=== PATIENT | female | born 1960 | race Hispanic/Latino ===

== ENCOUNTER 2019-01-26 10:36 | Inpatient (IN) | payer BC ==
[~2019-01-26] VITALS: Ht 149.9 cm; Wt 77.6 kg
[2019-01-26] VITALS: BP 122/64
[~2019-01-26 10:36] MED LIST: BYSTOLIC10 MG PO; CLONAZEPAM1 MG PO; CRESTOR10 MG PO; ENJUVIA0.45 MG PO; ESIDRIX25 MG PO; MIRAPEX0.25 MG PO; NEURONTIN100 MG PO; NORVASC10 MG PO; PRAMIPEXOLE D0.25 MG PO; PREMARIN0.625 MG PO
--- OUTSIDE RECORDS SUMMARY | 2019-01-26 10:40 | XMS REPORT | Summary of Care ---
Author Author [facility] Organization [facility] Address Unknown Phone Unavailable Encounter HQ Encntr_mundo(FIN) [id number] Date(s): 05/10/16 - 05/10/16 [facility] [address] [place] [address]- [phone] Discharge Disposition: Home or Self Care Attending Physician: Trenton Abbasi MD Referring Physician: Trenton Abbasi MD Vital Signs No data available for this section Problem List No data available for this section Allergies, Adverse Reactions, Alerts Substance Reaction Severity Status Flagyl Active Medications No data available for this section Results No data available for this section Immunizations No data available for this section Procedures No data available for this section Social History Social History Type Response Assessment and Plan No data available for this section
--- OUTSIDE RECORDS SUMMARY | 2019-01-26 10:40 | XMS REPORT ---
Author Author [facility] Address Unknown Phone Unavailable Care Team Providers Care Chemical Pathologist Name Role Phone Unavailable Unavailable Payers Payer Name Policy Type Policy Number Effective Date Expiration Date Problems This patient has no known problems. Allergies, Adverse Reactions, Alerts Allergy Name Allergy Type Status Severity Reaction(s) Onset Date Inactive Date Treating Clinician Comments Metronidazole HCl DA Active SV 2018-08-07 00:00:00 Metronidazole HCl DA Active SV 2011-08-17 00:00:00 Medications This patient has no known medications.
--- OUTSIDE RECORDS SUMMARY | 2019-01-26 10:40 | XMS REPORT | Continuity of Care Document ---
Author Author [facility] Interface Address Unknown Phone Unavailable Problems Problem Status Onset Date Classification Date Reported Comments Source DX: R91.1=SOLITARY PULMONARY NODULE Active 05/03/2016 [facility] SOLITARY PULMONARY NODULE Active [facility] Medications Medication Details Route Status Patient Instructions Ordering Provider Order Date Source Allergies, Adverse Reactions, Alerts Substance Category Reaction Severity Reaction type Status Date Reported Comments Source Flagyl Assertion Drug allergy Active [facility] Immunizations Immunization Date Given Site Status Last Updated Comments Source Results Order Name Results Value Reference Range Date Interpretation Comments Source PET CT Lung solitary pulm nodule PET CT Lung solitary pulm nodule PET CT Lung solitary pulm nodule TECHNIQUE: 15 mCis of FDG were administered intravenously and a series of overlapping images were obtained from the skull base to the proximal thighs utilizing a PET/CT hybrid device. The CT was utilized for attenuation correction and anatomic correlation and not as an independent diagnostic study. BLOOD GLUCOSE: 104 mg/dl COMPARISON: No previous imaging is available for direct comparison. Outside institution CT scan report from 05/01/2016 is referenced. CLINICAL HISTORY: R91.1 Solitary pulmonary nodule; FINDINGS: HEAD AND NECK: No abnormal activity is visualized CHEST: Corresponding to the 9 mm left lower lobe pulmonary nodule, no significant increase in metabolic activity is noted. Maximum SUV is 1.5 on image 104. Mild cardiomegaly. ABDOMEN AND PELVIS: Status post hysterectomy. Physiologic activity is visualized in the solid organs, genitourinary tract and gastrointestinal tract. SKELETON: No abnormal activity is visualized IMPRESSION: No significant increase in metabolic activity is noted corresponding to the 9 mm nodule at left lung base. Continued imaging follow-up and clinical follow-up is recommended. [id number] 05/10/2016 - - Read by: Stas Candelaria MD Dictated Date/time: 05/11/16 10:36 Electronically Signed by: Stas Candelaria MD 05/11/16 10:54 FINAL REPORT Tamiko Vital Signs Vital Sign Value Date Comments Source Encounters Location Location Details Encounter Type Encounter Number Reason For Visit Attending Provider ADM Date DC Date Status Source [facility] [id number] Trenton Oroscoel 05/10/2016 05/11/2016 [facility] Procedures Procedure Code Date Perfomer Comments Source
[2019-01-26] MEDS ORDERED: FAMOTIDINE 20 MG/2 ML VIAL IV STA (10:42)
[2019-01-26] MEDS ORDERED: ONDANSETRON HCL INJ 2MG/ML 2ML 2 MG/ML VIAL IV STA (10:42)
[2019-01-26] MEDS ORDERED: SODIUM CHLORIDE 0.9% 1000ML 1,000 ML IV ONE (10:45)
[2019-01-26] MEDS ORDERED: MORPHINE SULFATE 5 MG/ML VIAL IV ONE ×2 (10:45→14:30)
[2019-01-26] MEDS ORDERED: DICYCLOMINE HCL 20 MG/2 ML VIAL IM ONE (10:45)
[2019-01-26] MEDS ORDERED: DIATRIZOATE MEGL/DIATRIZOA SOD 30 ML BTL PO ONE (10:55)
[2019-01-26 10:56] LABS: BASOPHILS % 0.4 % (0.0-1.0); EOSINOPHILS # (AUTO) 0.1 (0.0-0.4); EOSINOPHILS % 1.1 % (0.0-6.0); HEMATOCRIT 40.9 % (34.2-44.1); LYMPHOCYTES # (AUTO) 2.1 (1.0-3.2); LYMPHOCYTES % 18.3 % (18.0-39.1); MEAN CORPUSCULAR HEMOGLOBIN 30.2 pg (28-32); MEAN CORPUSCULAR HGB CONC 31.8 g/dL (31-35); MEAN CORPUSCULAR VOLUME 95.1 fL (81-99); MONOCYTES # (AUTO) 0.8 (0.2-0.8); MONOCYTES % 6.7 % (4.4-11.3); NEUTROPHILS # (AUTO) 8.3 (2.1-6.9); NEUTROPHILS % 73.1 % (38.7-80.0); PLATELET COUNT 255 x10e3/uL (140-360); RED CELL DISTRIBUTION WIDTH 15.1 % (11.7-14.4)
--- NOTE | 2019-01-26 10:56 | NUR ---
rec'd pt in rm 3 in walking rounds with livrn and davidson simental. pt medicated per 's orders. bed low/locked and call lancaster at side. spouse in room with patient. ct contrast dropped off.
[2019-01-26] MEDS ORDERED: MORPHINE SULFATE INJ 4 MG/ML INJ 1ML IV ONE (11:00)
[2019-01-26 11:21] LABS: ALANINE AMINOTRANSFERASE 14 IU/L (0-55); ALBUMIN 3.9 g/dL (3.5-5.0); ALBUMIN/GLOBULIN RATIO 1.2 (0.8-2.0); ALKALINE PHOSPHATASE 51 IU/L (40-150); ANION GAP 19.1 mmol/L (8-16); BLOOD UREA NITROGEN 10 mg/dL (7-26); BUN/CREATININE RATIO 12 (6-25); CARBON DIOXIDE 20 mmol/L (22-29); CHLORIDE 100 mmol/L (98-107); CREATININE, SERUM 0.85 mg/dL (0.57-1.11); EST GLOMERULAR FILTRATION RATE > 60 ML/MIN (60-); GLUCOSE 89 mg/dL (74-118); LIPASE 14 U/L (8-78); POTASSIUM 4.1 mmol/L (3.5-5.1); SODIUM 135 mmol/L (136-145)
--- NOTE | 2019-01-26 12:58 | NUR ---
back from ct and rating pain 03/14. "the morphine seemed to help me rest and it took some of the pain away, but it wore off." dr. naik/sigifredo sullivan np informed
[2019-01-26] MEDS ORDERED: KETOROLAC TROMETHAMINE 30 MG/ML VIAL IV STA (13:25)
[2019-01-26] MEDS ORDERED: ERTAPENEM 1GM/NS 100ML 100 ML IV ONE (13:30)
--- NOTE | 2019-01-26 13:41 | NUR ---
medicated for pain with 30mg iv toradol. pt rating lower back pain 8/10
[2019-01-26] MEDS ORDERED: PIPERACILLIN/TAZO 4.5 GM 100 ML IV ONE (14:00)
--- NOTE | 2019-01-26 14:22 | Diagnostic Imaging Report ---
CT of the abdomen and pelvis, with contrast, 01/26/2019. History: Diverticulitis. Comparison: Outside noncontrast CT 01/25/2019. Technique: Multidetector CT scanning of the abdomen and pelvis was performed from the level of the lung bases to the inferior pubic rami after intravenous and oral administration of contrast. Coronal and sagittal multiplanar reformations were obtained. RADIATION DOSE: Total DLP: 620 mGy*cm Dose modulation, iterative reconstruction, and/or weight based adjustment of the mA/kV was utilized to reduce the radiation dose to as low as reasonably achievable. Discussion: LUNG BASES: A 1.2 x 1.1 cm noncalcified nodule is present at the left lung base. There is bibasilar atelectasis. ABDOMEN: The liver, gallbladder, biliary tree, spleen, pancreas, adrenal glands, and kidneys are normal. The hepatic vein, portal vein, and splenic vein are patent. The abdominal aorta is within normal limits for size. The stomach and small bowel bowel are unremarkable. The appendix is visualized and is normal. Diverticula are scattered throughout the colon. There is mesenteric fat stranding adjacent to the mid ascending colon. There is no evidence of free air or focal fluid collection. There is no evidence of adenopathy or free fluid. A small fat-containing umbilical hernia is present. PELVIS: The bladder is unremarkable. The uterus and adnexa are not visualized. There is no evidence of free fluid or adenopathy. BONES AND SOFT TISSUES: Mild degenerative changes are present throughout the lumbar spine without evidence of lytic or sclerotic lesion. IMPRESSION: 1. Diverticulitis of the ascending colon without evidence of perforation or abscess. 2. Left lower lobe 1.2 cm pulmonary nodule. Consider follow-up CT at 3 months, PET/CT, or tissue sampling. 3. Status post hysterectomy. Signed by: Keenan Ruth on 01/26/2019 2:19 PM
[2019-01-26] MEDS ORDERED: MORPHINE SULFATE INJ 4 MG/ML INJ 1ML IV SCH (14:30)
[2019-01-26] MEDS ORDERED: SODIUM CHLORIDE FLUSH 10 ML SYR INJ PRN (14:45)
[2019-01-26] MEDS ORDERED: DICYCLOMINE HCL 20 MG/2 ML VIAL IM PRN (14:45)
[2019-01-26] MEDS ORDERED: MORPHINE SULFATE 2 MG/ML SYR 1ML IV PRN (14:45)
--- NOTE | 2019-01-26 14:56 | NUR ---
pt updated on pending admit to hospital
[2019-01-26] MEDS: SODIUM CHLORIDE 0.9% 1000ML 1,000 ML IV SCH (15:00)
--- NOTE | 2019-01-26 15:00 | NUR ---
PT TRANSPORTED TO ROOM 299 VIA WHEELCHAIR FROM ER. NO S/S OF DISTRESS, O2 2L VIA NC APPLIED. IS AT THE BEDSIDE. PT IS COMPLAINING OF PAIN 8/10 IN THE LOWER BACK. Addendum: 01/26/19 at 1919 by Bobbi Tafoya RN PT ARRIVED ON UNIT AT 1715. "PT TRANSPORTED TO ROOM 299 VIA WHEELCHAIR FROM ER. NO S/S OF DISTRESS, O2 2L VIA NC APPLIED. IS AT THE BEDSIDE. PT IS COMPLAINING OF PAIN 8/10 IN THE LOWER BACK."
[2019-01-26] MEDS ORDERED: METOPROLOL TART50 MG PO (15:25)
[2019-01-26] MEDS ORDERED: LIPITOR20 MG PO (15:25)
[2019-01-26] MEDS ORDERED: MECLIZINE HCL12.5 MG PO (15:25)
[2019-01-26] MEDS ORDERED: ESTROGEN-METHY1 EACH PO (15:25)
--- NOTE | 2019-01-26 15:25 | NUR ---
updated home med list obtained from spouse and entered into the computer
--- NOTE | 2019-01-26 16:30 | NUR ---
RECEIVED REPORT FROM ER. PT IS AOX3, R AC 20G NS @ 125ML/HR, 2L O2 VIA NC, COMPLAINING OF LOWER BACK PAIN MORPHINE 4MG WAS LAST GIVEN AT 1100. PT IS ON CLEAR LIQUID DIET AND AMBULATES WITHOUT ASSISTANCE.
[2019-01-26 17:32] VITALS: BP 113/57
[2019-01-26 17:33] VITALS: BP 113/57
[2019-01-26] MEDS: MORPHINE SULFATE INJ 4 MG/ML INJ 1ML IV PRN (17:41)
[2019-01-26] MEDS: ONDANSETRON HCL INJ 2MG/ML 2ML 2 MG/ML VIAL IV PRN (17:41)
[2019-01-26 17:50] VITALS: BP 113/57
[2019-01-26] MEDS: LEVOFLOXACIN 500MG/D5W 100ML 100 ML IV SCH (18:27)
--- NOTE | 2019-01-26 19:00 | NUR ---
patient received awake, alert, lying quietly in bed. no c/o pain noted. ivf continue to infuse without difficulty. pm assessment complete. patient instructed to call for assistance when needed.
[2019-01-26] MEDS ORDERED: IOPAMIDOL 370 MG/ML 200 ML INFUS..BTL INJ ONE (19:22)
[2019-01-26] MEDS ORDERED: SODIUM CHLORIDE 0.9% 50ML 50 ML ONE (19:22)
[2019-01-26 19:30] VITALS: BP 96/56
[2019-01-26 20:00] VITALS: BP 96/56
--- NOTE | 2019-01-26 21:19 | NUR ---
here to see patient. Consult ordered for . Consult called at this time by Beverly GALLOWAY and she spoke to Gertrudis.
[2019-01-26] MEDS: PIPER-TAZ 3.375 GM 50 ML IV SCH (22:00)
[2019-01-26] MEDS ORDERED: PIPER-TAZ 3.375 GM / NS 50ML IV SCH (22:00)
[2019-01-27] VITALS (7 sets, daily range): BP systolic 111–125; BP diastolic 53–80
--- NOTE | 2019-01-27 | NUR ---
patient oob to bathroom with assistance. patient voids without difficulty. patient medicated with morphine 4mg and zofran 4mg ivp for c/o upper abd/upper mid back pain 02/11 at this time.
--- NOTE | 2019-01-27 00:49 | History and Physical ---
CHIEF COMPLAINT: Abdominal pain that started 3 days ago. HISTORY OF PRESENT ILLNESS: Ms. Prescott is a 58-year-old female, she came in for abdominal pain. She is a regular patient of Dr. Cullen Abbasi and she has been admitted to our service as we admitted for Dr. Abbasi. The patient reports that the pain started Saturday, which is two days ago and progressively got worse, it was associated with nausea, she vomited once as well. Mostly, the abdominal pain is in the upper abdomen, radiates to the back. She denies any complaints of chest pain or shortness of breath. She has been a smoker for 30+ years. REVIEW OF SYSTEMS: GENERAL: Denies any fever or chills. HEAD: Denies any head trauma. ENT: Denies any earache or nosebleed. CVS: Denies any chest pain. RESPIRATORY: Denies any shortness of breath. GI: As above. The rest of the review of systems are negative except as in HPI. PAST MEDICAL HISTORY: Hypertension. PAST SURGICAL HISTORY: Hysterectomy and AVM surgery in the brain. FAMILY AND SOCIAL HISTORY: Smoker for 30 years, couple of cigarettes a day. Denies any alcohol use. Lives with her . Works in the office. PHYSICAL EXAMINATION: VITAL SIGNS: Temperature 97.6, pulse of 67, blood pressure 113/57, respiratory rate of 18, and O2 saturation 95%. HEENT: Head is atraumatic and normocephalic. NECK: Supple. CHEST: Clear to auscultation bilaterally. ABDOMEN: Soft. [id number]-lp-[id number] tenderness, generalized. EXTREMITIES: No pedal edema. NEUROLOGICAL: Awake and alert. No focal neurologic deficit. IMAGING: CT of the abdomen and pelvis shows evidence of diverticulitis without perforation and incidental finding of the lung nodule. LABORATORY DATA: Sodium 135, potassium 4.1, bicarb 20, BUN 10, and creatinine 0.85. White count of 11,000, hemoglobin 13.0, and platelets 255. ASSESSMENT: Ms. Prescott is a 58-year-old female came in with abdominal pain. CT showing evidence of diverticulitis. She is mildly acidotic with carbon dioxide of 20 anion gap of 19. Current problem: 1. Possible acute diverticulitis. We will start the patient on IV Levaquin. The patient has been given Zosyn in the emergency room. We will recheck labs in a.m. Check lactate level. 2. Consult Gastroenterology for further recommendations. Discussed with the patient's at bedside. MD HU Varma/MAYLIN /[id number]
[2019-01-27] MEDS: SODIUM CHLORIDE 0.9% 1000ML 1,000 ML IV SCH ×4 (02:00→21:55)
--- NOTE | 2019-01-27 02:15 | Consultation ---
DATE OF CONSULTATION: 01/26/2019 GI Consult Note CONSULTING PHYSICIAN: Mustapha Zavala MD REASON FOR CONSULT: Acute ascending colon diverticulitis. HISTORY OF PRESENTING ILLNESS: This is a 58 years old very pleasant female, who got admitted to the Emergency Room with acute onset of right lower quadrant pain. She denies any associated fever or chills. She has some admitted nausea. This pain started all of sudden yesterday, therefore she came to the Emergency Room. Blood work revealed mild leukocytosis with left shift. CT scan of the abdomen showed acute ascending colon diverticulitis without any local complications. She is currently being treated with broad-spectrum intravenous antibiotics. The patient has had a colonoscopy when she was 52 years old. The patient is not able to recall the findings. REVIEW OF SYSTEMS: Twelve point system reviewed. Symptomatology is limited to GI system. PAST MEDICAL HISTORY: Hypertension and hyperlipidemia. 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 She also has had a colonoscopy 4 years ago, spinal surgery, and hysterectomy. FAMILY HISTORY: Noncontributory. SOCIAL HISTORY: , lives with . No alcohol or any smoking. ALLERGIES: NO KNOWN DRUG ALLERGIES. HOME MEDICATIONS: Amlodipine, atorvastatin, meclizine, metoprolol, pramipexole, estrogen/testosterone. INPATIENT MEDICATIONS: Intravenous levofloxacin and intravenous piperacillin/tazobactam along with other medication. PHYSICAL EXAMINATION: VITAL SIGNS: Temperature 95.6, pulse 67, respirations 19, blood pressure 113/57, and oxygen saturation 95% on 2 L of nasal cannula. GENERAL: Not in any acute distress. HEENT: Oral mucosa is moist. Anicteric sclerae. CVS: S1, S2. Regular. LUNGS: Bilaterally grossly clear. ABDOMEN: Soft. Mild lower quadrant tenderness on palpation without rebound, rigidity, or guarding. No palpable mass or hernia. Positive bowel sounds. EXTREMITIES: Warm. No leg edema. LABORATORY DATA: WBC 11.39, hemoglobin 13.0, hematocrit 40.9, MCV 95.1, and platelet count 255. Sodium 135, potassium 4.1, chloride 100, bicarb 20, BUN 10, creatinine 0.85. Liver enzymes normal. CT of the abdomen and pelvis: 1. Diverticulitis of ascending colon without evidence of perforation or abscess. 2. Left lower lobe 1.2 cm pulmonary nodule. Consider followup CT at 3 months, PT/CT or tissue sampling. 3. Status post hysterectomy. IMPRESSION: Acute ascending diverticulitis without any local complication. PLAN: Low residue diet, IV fluids, continue broad-spectrum intravenous antibiotic. Supportive care. Surgery consult. Primary team to address lung nodule as seen on CT. I thank Dr. Zavala for allowing me to participate in the care of this patient. Nick Elise MD SA/MAYLIN /[id number]
[2019-01-27] MEDS: PIPER-TAZ 3.375 GM 50 ML IV SCH ×3 (05:24→22:54)
[2019-01-27 06:15] LABS: BASOPHILS % 0.5 % (0.0-1.0); EOSINOPHILS # (AUTO) 0.1 (0.0-0.4); EOSINOPHILS % 1.2 % (0.0-6.0); HEMATOCRIT 33.9 % (34.2-44.1); HEMOGLOBIN 10.6 g/dL (12.0-16.0); LYMPHOCYTES # (AUTO) 1.4 (1.0-3.2); LYMPHOCYTES % 19.4 % (18.0-39.1); MEAN CORPUSCULAR HEMOGLOBIN 31.2 pg (28-32); MEAN CORPUSCULAR HGB CONC 31.3 g/dL (31-35); MEAN CORPUSCULAR VOLUME 99.7 fL (81-99); MONOCYTES # (AUTO) 0.5 (0.2-0.8); MONOCYTES % 6.2 % (4.4-11.3); NEUTROPHILS # (AUTO) 5.3 (2.1-6.9); NEUTROPHILS % 72.4 % (38.7-80.0); PLATELET COUNT 191 x10e3/uL (140-360); RED CELL DISTRIBUTION WIDTH 15.1 % (11.7-14.4)
[2019-01-27 06:28] LABS: ALANINE AMINOTRANSFERASE 10 IU/L (0-55); ALBUMIN/GLOBULIN RATIO 1.2 (0.8-2.0); ALKALINE PHOSPHATASE 36 IU/L (40-150); BLOOD UREA NITROGEN 7 mg/dL (7-26); BUN/CREATININE RATIO 11 (6-25); CALCIUM 8.1 mg/dL (8.4-10.2); CARBON DIOXIDE 18 mmol/L (22-29); CHLORIDE 106 mmol/L (98-107); CREATININE, SERUM 0.65 mg/dL (0.57-1.11); EST GLOMERULAR FILTRATION RATE > 60 ML/MIN (60-); GLUCOSE 71 mg/dL (74-118); SODIUM 134 mmol/L (136-145)
[2019-01-27] MEDS: MORPHINE SULFATE INJ 4 MG/ML INJ 1ML IV PRN ×5 (06:45→20:29)
[2019-01-27] MEDS: ONDANSETRON HCL INJ 2MG/ML 2ML 2 MG/ML VIAL IV PRN ×5 (06:45→20:30)
--- NOTE | 2019-01-27 06:45 | NUR ---
patient oob to bathroom with assistance. patient medicated with morphine 4mg and zofran 4mg ivp for c/o upper abd/mid upper back pain 02/11 at this time.
--- NOTE | 2019-01-27 07:25 | NUR ---
Bedside change of shift report received from Suzy Verduzco RN. Pt is resting comfortably in bed sts she just received pain med and nausea med and her abdomen started to feel better, pt instructed use the call light for assistance, call light is within reach, 20 g peripheral iv infusing well to left arm with no complaints of discomfort, bed in the lowest position, side rails up x2, and bed is locked.
--- NOTE | 2019-01-27 11:45 | NUR ---
Visit made by the Spiritual Care Department Pastoral Visitor, Albertina Mejias. PV provided pastoral presence, prayer, hospitality, and supportive listening. Pastoral Visitor informed pt/family of the scope of [employer] and availability. [facility] Department O: [phone] Pager: [phone] ([phone] calling from)
--- NOTE | 2019-01-27 15:08 | Consultation ---
DATE OF CONSULTATION: 01/27/2019 CHIEF COMPLAINT: Abdominal pain. HISTORY OF PRESENT ILLNESS: The patient is a 58-year-old female with a 3-day history of pain in the right upper quadrant radiating to the back with vomiting and diarrhea. Pain is persistent. No associated fever or chills. No prior episode. No family members with same symptoms. PAST MEDICAL HISTORY: Positive for hypertension. PAST SURGICAL HISTORY: Positive for hysterectomy and brain surgery for AVM and AV malformation. SOCIAL HABITS: The patient is a social drinker and smoker for many years. REVIEW OF SYSTEMS: No chest pain or shortness of breath. ALLERGIES: SHE HAD NO DRUG ALLERGIES. PHYSICAL EXAMINATION: VITAL SIGNS: Stable. She is afebrile. She is awake, alert, in moderate discomfort. HEENT: Sclera anicteric. NECK: Supple. LUNGS: Clear. HEART: Regular rate and rhythm. ABDOMEN: Soft with guarding tenderness and rebound in the right upper quadrant. EXTREMITIES: No cyanosis or edema. LABORATORY DATA: White cell count is 7, hemoglobin of 10, platelet count is 191. Creatinine is 0.6. Liver function tests within normal limits. CT abdomen revealed diverticulitis involving the mid ascending colon without abscess formation. ASSESSMENT: Acute diverticulitis of the ascending colon. PLAN: IV antibiotics have been initiated. We will follow patient with you. Magdaleno Story MD DNL/MODL /[id number]
[2019-01-27] MEDS: LEVOFLOXACIN 500MG/D5W 100ML 100 ML IV SCH (18:58)
--- NOTE | 2019-01-27 19:04 | NUR ---
Bedside change of shift report given to LAZARO Cowan. Pt is resting comfortably in bed and no acute distress noted. IVF infusing well to Lfa. Pt instructed to call for assistance. Pt verbalized understanding.
--- NOTE | 2019-01-27 20:30 | NUR ---
PATIENT C/O NAUSEA AND ABDOMINAL PAIN, MEDICATED WITH ZOFRAN AND MORPHINE ORDERED. CALL LIGHT WITHIN EASY REACH, SHE'S INSTRUCTED TO CALL FOR ASSISTANCE NEEDED. HER IS AT THE BEDSIDE, HE'S TOLD TO NOTIFY THE NURSE WHEN HE'S LEAVING SO THAT THE BED ALARM CAN BE ACTIVATED.
--- NOTE | 2019-01-27 21:32 | NUR ---
PATIENT ASSISTED TO THE RESTROOM AND SHE'S NOW BACK IN BED. SMALL BLISTER OBSERVED TO THE RIGHT UPPER BACK, ALLEVYN DRESSING APPLIED TO THE SITE AND PAD REMOVED FROM THE BED. WILL CONSULT WOUND CARE.
--- NOTE | 2019-01-27 21:39 | Progress Note ---
DATE: 01/27/2019 GI Progress Report SUBJECTIVE: The patient reports slight improvement in abdominal pain. Still not able to tolerate clear liquids. She continues to have nausea, she has had a couple of bouts of vomiting. REVIEW OF SYSTEMS: GENERAL: No fever or chills. CVS: No chest pain or palpitation. RESPIRATORY: No cough or expectoration. MEDICATIONS: Reviewed in the MAR, the patient is on intravenous levofloxacin and piperacillin/tazobactam along with other supportive medications. PHYSICAL EXAMINATION: VITAL SIGNS: Temperature 98.8, pulse 76, respirations 16, blood pressure 125/58, and oxygen saturation 93% on 2 L of nasal cannula. GENERAL: Not in any acute distress. HEENT: Oral mucosa is moist. ABDOMEN: Soft. Right lower quadrant tenderness on mild palpation without rebound, rigidity, or guarding. Positive bowel sounds. LABORATORY DATA: Sodium 134, potassium 4.0, chloride 106, bicarb 18, BUN 7, and creatinine 0.65. Liver enzymes showed total bilirubin 0.4, AST 10, ALT 10, and alkaline phosphatase 36. WBC has come down to 7.37 from 11.39, hemoglobin 10.6, hematocrit 33.9, MCV 99.7, and platelet count 191. IMPRESSION: Ascending colon diverticulitis without any local complication. PLAN: Continue liquid diet as tolerated. IV fluids and IV antibiotics. The patient's white count has significantly improved. Abdominal exam has also improved since yesterday. We will continue to monitor her and follow her clinically. Nick Elise MD SA/MAYLIN /[id number]
[2019-01-28] VITALS (7 sets, daily range): BP systolic 92–157; BP diastolic 67–77
[2019-01-28] MEDS: ONDANSETRON HCL INJ 2MG/ML 2ML 2 MG/ML VIAL IV PRN ×5 (01:06→22:23)
[2019-01-28] MEDS: MORPHINE SULFATE INJ 4 MG/ML INJ 1ML IV PRN ×3 (01:06→11:55)
--- NOTE | 2019-01-28 01:07 | NUR ---
PATIENT ASSISTED TO THE RESTROOM, SHE'S NOW BACK IN BED WITH CALL LIGHT WITHIN EASY REACH. SHE C/O ABDOMINAL PAIN AND NAUSEA, MEDICATED WITH MORPHINE AND ZOFRAN ORDERED.
--- NOTE | 2019-01-28 05:10 | NUR ---
PATIENT IS SOUNDLY ASLEEP, NO RESPIRATORY DISTRESS OBSERVED.
[2019-01-28] MEDS: PIPER-TAZ 3.375 GM 50 ML IV SCH ×3 (06:33→21:40)
[2019-01-28] MEDS: SODIUM CHLORIDE 0.9% 1000ML 1,000 ML IV SCH (06:33)
--- NOTE | 2019-01-28 07:25 | NUR ---
REC'D PATIENT AAOX3, C/O BACK IN PAIN, ON ROOM AIR, NO S/S OF DISTRESS. SIDE RAILS UP X2, CALL ROMERO WITHIN REACH, AND BED IN LOWEST POSITION.
[2019-01-28] MEDS ORDERED: SODIUM CHLORIDE 0.9% 1000ML 1,000 ML ONE (17:37)
--- NOTE | 2019-01-28 18:00 | NUR ---
DR. GILMORE IS IN ROOM WITH PATIENT. DISCONTINUED IV FLUIDS AND STARTED UP ON HOME MEDS AND PO PAIN MED. BED IN LOWEST POSITION, SIDE RAILS UPX2, AND CALL ROMERO WITHIN REACH.
[2019-01-28] MEDS: LEVOFLOXACIN 500MG/D5W 100ML 100 ML IV SCH (18:19)
[2019-01-28] MEDS ORDERED: MECLIZINE HCL 12.5 MG TAB PO PRN (18:30)
[2019-01-28] MEDS ORDERED: ESTROGEN-METHY1 EACH PO (19:12)
--- NOTE | 2019-01-28 19:30 | NUR ---
Pt visited in room during nursing rounds. Patient alert and oriented x3. Pt stated still feeling some abd pain. at bedside. On scheduled IV antibiotics. Call lancaster within reach.
--- NOTE | 2019-01-28 20:00 | NUR ---
Dr. Nick Elise (GI) visited pt in room. MD aware of pt condition.
[2019-01-28] MEDS: PRAMIPEXOLE DIHYDROCHLORIDE 0.25 MG TAB PO SCH (21:15)
[2019-01-28] MEDS: HYDROCODONE/APAP 5MG-325MG TAB PO PRN (21:34)
--- NOTE | 2019-01-28 23:10 | Progress Note ---
DATE: 01/28/2019 SUBJECTIVE: The patient reports significant improvement in abdominal pain. However, she is complaining about constipation. She has had a very small bowel movement. She feels that the stool is very hard, and hard to pass. REVIEW OF SYSTEMS: GENERAL: No fever or chills. CVS: No chest pain or palpitations. RESPIRATORY: No cough or expectoration. MEDICATIONS: Reviewed as per OCT. She is on levofloxacin as well as piperacillin/tazobactam being given intravenously along with other medications. OBJECTIVE: VITAL SIGNS: Temperature 97.5, pulse 64, respirations 17, blood pressure 134/77, oxygen saturation 97% on 2 L of nasal cannula. GENERAL: Not in any acute distress. HEENT: Oral mucosa is moist. ABDOMEN: Soft. Right lower quadrant tenderness has improved. No rebound, rigidity, or guarding. Bowel sounds minimal. LABS: No lab drawn today. IMPRESSION: 1. Ascending diverticulitis, clinically improving. 2. Opioid-induced constipation. PLAN: Daily bowel regimen. A trial of Relistor if no BM tomorrow. Continue IV antibiotics, IV fluids. Advance the diet as tolerated. The patient is currently on liquid diet. Nick Elise MD SA/MAYLIN /[id number]
[2019-01-29] VITALS (7 sets, daily range): BP systolic 130–181; BP diastolic 65–88
[2019-01-29] MEDS: ONDANSETRON HCL INJ 2MG/ML 2ML 2 MG/ML VIAL IV PRN ×2 (03:43→22:34)
[2019-01-29] MEDS: MORPHINE SULFATE INJ 4 MG/ML INJ 1ML IV PRN ×4 (03:43→22:34)
[2019-01-29] MEDS: PIPER-TAZ 3.375 GM 50 ML IV SCH ×3 (05:52→22:13)
[2019-01-29 06:23] LABS: BASOPHILS % 0.5 % (0.0-1.0); EOSINOPHILS # (AUTO) 0.1 (0.0-0.4); EOSINOPHILS % 2.4 % (0.0-6.0); HEMATOCRIT 34.9 % (34.2-44.1); HEMOGLOBIN 11.3 g/dL (12.0-16.0); LYMPHOCYTES # (AUTO) 1.5 (1.0-3.2); MEAN CORPUSCULAR HEMOGLOBIN 30.5 pg (28-32); MEAN CORPUSCULAR HGB CONC 32.4 g/dL (31-35); MEAN CORPUSCULAR VOLUME 94.3 fL (81-99); MONOCYTES # (AUTO) 0.5 (0.2-0.8); MONOCYTES % 8.4 % (4.4-11.3); NEUTROPHILS # (AUTO) 3.7 (2.1-6.9); NEUTROPHILS % 63.5 % (38.7-80.0); PLATELET COUNT 231 x10e3/uL (140-360); RED CELL DISTRIBUTION WIDTH 14.6 % (11.7-14.4)
[2019-01-29 06:39] LABS: ANION GAP 13.4 mmol/L (8-16); BLOOD UREA NITROGEN < 5 mg/dL (7-26); CALCIUM 8.4 mg/dL (8.4-10.2); CARBON DIOXIDE 23 mmol/L (22-29); CHLORIDE 102 mmol/L (98-107); EST GLOMERULAR FILTRATION RATE > 60 ML/MIN (60-); GLUCOSE 84 mg/dL (74-118); POTASSIUM 3.4 mmol/L (3.5-5.1); SODIUM 135 mmol/L (136-145)
[2019-01-29 06:52] LABS: BUN/CREATININE RATIO 8 (6-25)
--- NOTE | 2019-01-29 07:15 | NUR ---
The pt. was received in bed asleep to the right side. The bed rails are elevated and no distress noted.
[2019-01-29] MEDS: POLYETHYLENE GLYCOL 3350 17 GM PACK PO SCH ×2 (09:00→17:00)
[2019-01-29] MEDS: METOPROLOL TARTRATE 50 MG TAB PO SCH (09:00)
--- NOTE | 2019-01-29 10:03 | NUR ---
Rounds with Dr. Zavala and the pt reports to him no decrease in the amount and was tender at palpation. The ordered a Ct scan of the abd /pelvis. The pt was medicated for pain 03/14.
[2019-01-29] MEDS ORDERED: DIATRIZOATE MEGL/DIATRIZOA SOD 30 ML BTL PO ONE (10:13)
[2019-01-29] MEDS ORDERED: POTASSIUM CHLORIDE 20MEQ/100ML 100 ML IV ONE (10:30)
--- NOTE | 2019-01-29 13:57 | Diagnostic Imaging Report ---
EXAM: CT Abdomen and Pelvis WITH contrast INDICATION: ^SEVERE ABDOMINAL PAIN/ DIAGNOSED WITH DIVETICULITIS ^[id number] ^1100 COMPARISON: CT abdomen/pelvis, 01/26/2019 TECHNIQUE: Abdomen and pelvis were scanned utilizing a multidetector helical scanner from the lung base to the pubic symphysis after administration of IV contrast. Coronal and sagittal reformations were obtained. Routine protocol was performed. Scan was performed when during portal venous phase. Dose modulation, iterative reconstruction, and/or weight based adjustment of the mA/kV was utilized to reduce the radiation dose to as low as reasonably achievable. IV CONTRAST: 100 mL of Isovue-370 ORAL CONTRAST: 30 cc Gastrografin RADIATION DOSE: Total DLP: 529.09 mGy*cm Estimated effective dose: (DLP x 0.015 x size factor) mSv COMPLICATIONS: None FINDINGS: LINES and TUBES: None. LOWER THORAX: Nonspecific 1.2 cm nodule again noted at the left lung base. No pulmonary consolidation. Trace right pleural effusion has developed since last exam. HEPATOBILIARY: There are two hyperdense masses in the right lobe of the liver measuring 1.2 cm (series 2, image 19), and 1.0 cm (image 12).. These are better seen than on last exam due to differences in bolus timing. No biliary ductal dilation. GALLBLADDER: No radio-opaque stones or sludge. No wall thickening. SPLEEN: No splenomegaly. PANCREAS: No focal masses or ductal dilatation. ADRENALS: No adrenal nodules KIDNEYS/URETERS: Kidneys enhance symmetrically. No hydronephrosis. No cystic or solid mass lesions. No stones. GI TRACT: No abnormal distention, wall thickening, or evidence of bowel obstruction. Inflammatory stranding adjacent to the upper aspect of the ascending colon has improved since last exam. No pneumoperitoneum or fluid collection. Mild inflammatory stranding has developed adjacent to a diverticulum in the proximal transverse colon (series 2, image 41). Appendix is normal. PELVIC ORGANS/BLADDER: Appearance of the urinary bladder is normal. No abnormal mass or fluid collection in the pelvis. Uterus appears surgically absent. LYMPH NODES: No dominant lymph node mass is seen in the abdomen, retroperitoneum or pelvis. A few subcentimeter lymph nodes are seen in the right upper abdomen, likely reactive. VESSELS: Abdominal aorta is atherosclerotic with no aneurysm or dissection. IVC and portal system appear unremarkable. PERITONEUM / RETROPERITONEUM: No pneumoperitoneum or ascites. BONES: No displaced fracture or aggressive bony lesion is seen. SOFT TISSUES: Superficial surrounding soft tissues unremarkable. IMPRESSION: 1. Inflammatory stranding adjacent to the upper ascending colon has improved since last exam. A new site of mild inflammatory stranding has developed adjacent to a diverticulum in the proximal transverse colon, also compatible with diverticulitis. There is no pneumoperitoneum or fluid collection. 2. There are two arterially enhancing masses in the right lobe of the liver, better seen than on prior exam due to differences in bolus timing. Consider follow-up with liver mass protocol CT or MRI for further characterization. 3. Again noted is 1.2 cm pulmonary nodule at the left lung base. Recommendations for additional evaluation as noted on previous exam. Staff: Eugenio Signed by: Dr. Ulices Becker M.D. on 01/29/2019 1:54 PM
--- NOTE | 2019-01-29 14:36 | NUR ---
Dr. Zavala notified of the results of the Ct scan and asked that Dr. Story be notified as well.
[2019-01-29] MEDS ORDERED: SODIUM CHLORIDE 0.9% 250ML 250 ML ONE (14:43)
--- NOTE | 2019-01-29 15:00 | NUR ---
Dr. Story returned to call and was read the results of the ct scan no new orders received.
[2019-01-29] MEDS ORDERED: SODIUM CHLORIDE 0.9% 50ML 50 ML ONE (15:18)
[2019-01-29] MEDS ORDERED: IOPAMIDOL 370 MG/ML 200 ML INFUS..BTL INJ ONE (15:18)
--- NOTE | 2019-01-29 17:05 | NUR ---
The pt. is c/o diarrhea and the miralax was held at this time.
[2019-01-29] MEDS: LEVOFLOXACIN 500MG/D5W 100ML 100 ML IV SCH (17:28)
--- NOTE | 2019-01-29 19:30 | NUR ---
Pt visited in room during nursing rounds. Patient alert and oriented x3. Pt stated still feeling some abd pain and back pain. at bedside visiting. On scheduled IV antibiotics. Call [place] within reach.
--- NOTE | 2019-01-29 20:00 | NUR ---
Patient took a bath. Pt tolerated bath well.
[2019-01-29] MEDS: SENNA-S TABLET PO SCH (20:23)
[2019-01-29] MEDS: ATORVASTATIN 20 MG TAB PO SCH (21:00)
[2019-01-29] MEDS: PRAMIPEXOLE DIHYDROCHLORIDE 0.25 MG TAB PO SCH (21:00)
--- NOTE | 2019-01-29 21:05 | NUR ---
Dr. Elise (GI) came and visited pt. informed pt that diet can be advanced to low residue (GI Soft) diet.
--- NOTE | 2019-01-29 23:36 | Progress Note ---
DATE: 01/29/2019 GI Progress Report. SUBJECTIVE: The patient reports improvement in abdominal pain. She has had several bowel movement today. Stools were noted loose. No blood in the stool. REVIEW OF SYSTEMS: GENERAL: No fever or chills. CVS: No chest pain or palpitation. RESPIRATORY: No cough or expectoration. MEDICATIONS: Reviewed as per OCT. She is getting intravenous piperacillin and intravenous levofloxacin along with other medication. She is also on MiraLAX and senna with docusate. PHYSICAL EXAMINATION: VITAL SIGNS: Temperature 96.7, pulse 57, respirations 20, blood pressure 181/88, oxygen saturation 95% on room air. GENERAL: Not in any acute distress. HEENT: Oral mucosa is moist. Anicteric sclerae. ABDOMEN: Soft. Right lower quadrant tenderness has improved. No rebound, rigidity, or guarding. Positive bowel sounds. IMAGING: CT scan of the abdomen and pelvis with contrast repeated today. This showed: 1. Inflammatory stranding adjacent to the upper ascending colon has improved since last exam. A new site of mild inflammatory stranding has developed adjacent to the diverticulum in proximal transverse colon, also compatible with diverticulitis. There is no pneumoperitoneum or fluid collection. 2. There are two arterially enhancing masses in the right lobe of the liver, better seen than on prior exam due to difference in bolus timing. Consider follow up with the liver mass protocol CT MRI for further characterization. Again noted is 1.2 cm pulmonary nodule at the left lung base. Recommendation for additional evaluations are noted today. LABS: WBC has come down to 5.84, hemoglobin 11.3, hematocrit 34.9, and platelet count 231. Sodium 135, potassium 3.4, chloride 102, bicarb 23, BUN 5, creatinine 0.60. IMPRESSION: 1. Ascending and transverse colon diverticulitis without any local complication. The patient is clinically improving progressively every day. 2. Opioid-induced constipation, resolved. The patient is having more loose stool. 3. Incidental enhancing masses in the right lobe of the liver. No liver cirrhosis. PLAN: 1. Continue IV antibiotic. White count has normalized. Advance to low residue diet. Cut down MiraLAX to once a day. Recommended not to repeat any more scanning. The patient is clinically improving. May switch to oral antibiotic. 2. For incidental liver masses on the right lobe of the liver in a normal liver (no cirrhosis), I doubt these masses will be of any clinical significance. However, once the patient is more stable then we can perform MRI with liver protocol, in doing MRI we will avoid her exposure to radiation. Nick Elise MD SA/MAYLIN /[id number]
[2019-01-30] VITALS (8 sets, daily range): BP systolic 119–145; BP diastolic 58–91
[2019-01-30] MEDS: MORPHINE SULFATE INJ 4 MG/ML INJ 1ML IV PRN ×2 (05:28→10:05)
[2019-01-30] MEDS: ONDANSETRON HCL INJ 2MG/ML 2ML 2 MG/ML VIAL IV PRN ×2 (05:28→10:05)
[2019-01-30] MEDS: PIPER-TAZ 3.375 GM 50 ML IV SCH ×3 (05:33→21:30)
--- NOTE | 2019-01-30 07:08 | NUR ---
RECEIVED PATIENT RESTING IN BED. NO ACUTE DISTRESS NOTED AT THIS TIME. PATIENT STATES PAIN IS AT A TOLERABLE LEVEL AT THIS TIME. CALL LIGHT WITHIN REACH. BED IN THE LOWEST POSITION.
[2019-01-30] MEDS: POLYETHYLENE GLYCOL 3350 17 GM PACK PO SCH ×2 (08:00→17:00)
[2019-01-30] MEDS: METOPROLOL TARTRATE 50 MG TAB PO SCH (09:20)
[2019-01-30] MEDS ORDERED: SODIUM CHLORIDE 0.9% 100 ML 100 ML ONE (11:52)
[2019-01-30] MEDS ORDERED: GADOBENATE DIMEGLUMINE 1 ML IV ONE (11:52)
--- NOTE | 2019-01-30 13:43 | Diagnostic Imaging Report ---
Exam: Skull series History: MRI clearance Comparison: The report for a CT scan of the head from 01/31/2014 is available for review. No images available. Findings: Left temporoparietal craniotomy with 3 metallic plates and 2 metallic brackets. Serpiginous material in a vascular pattern in the left parieto-occipital region presumably represents [place] or NBCA embolization material. No acute displaced fracture. Sella is intact. Partially visualized paranasal sinuses and mastoid air cells are well aerated. 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 Signed by: Dr. Magdaleno Jeff M.D. on 01/30/2019 1:40 PM
[2019-01-30] MEDS: HYDROCODONE/APAP 5MG-325MG TAB PO PRN ×2 (14:25→20:42)
[2019-01-30] MEDS: ONDANSETRON HCL 4 MG ORAL DISINTEGRATING TAB PO PRN (16:32)
[2019-01-30] MEDS: LEVOFLOXACIN 500 MG TAB PO SCH (17:07)
--- NOTE | 2019-01-30 19:08 | NUR ---
Report given to oncoming nurse. Walking rounds done. Patient is resting in bed, no acute distress noted. No s/s of pain noted at this time. Family at bedside. Call light within reach. Bed in the lowest position.
[2019-01-30] MEDS: SENNA-S TABLET PO SCH (20:18)
[2019-01-30] MEDS: PRAMIPEXOLE DIHYDROCHLORIDE 0.25 MG TAB PO SCH (20:18)
[2019-01-30] MEDS: ATORVASTATIN 20 MG TAB PO SCH (20:18)
--- NOTE | 2019-01-30 22:07 | Diagnostic Imaging Report ---
EXAMINATION: CT scan of the chest without contrast. TECHNIQUE: Spiral CT images of the chest were performed from the lung apices to the level of the adrenal glands. No intravenous contrast was administered per referring physician request. Coronal and sagittal reformatted images were obtained. COMPARISON: CT abdomen and pelvis with contrast 01/29/2018 CLINICAL HISTORY:Pulmonary nodule DISCUSSION: ABSENCE OF INTRAVENOUS CONTRAST DECREASES SENSITIVITY FOR DETECTION OF FOCAL LESIONS AND VASCULAR PATHOLOGY. LINES/TUBES: None. LUNGS AND AIRWAYS: Resolved subsegmental atelectasis of the left lower lobe. Unchanged appearance of 1.2 cm nodule in the lateral segment. Bandlike atelectasis or scar in the lingula. Nonspecific patchy groundglass opacity medially in the left lower lobe which may right atelectasis. Similar findings laterally within the right middle lobe and right lower lobe. Calcified nodule or metallic clip in the posterior right lower lobe (series 3 image 84). PLEURA: No pneumothorax or pleural effusions. HEART AND MEDIASTINUM: Visualized thyroid gland appears normal. No ectasia or aneurysmal dilatation of the thoracic aorta. Pulmonary outflow tract is of normal caliber. No pericardial effusion. LYMPH NODES: No axillary, hilar, or mediastinal lymphadenopathy. ABDOMEN: Visualized portions of the liver, spleen, pancreas, and adrenal glands are unremarkable in their unenhanced appearance. BONES AND SOFT TISSUES: No osseous destructive lesions. No focal soft tissue abnormalities. Postsurgical changes of the partially visualized lower cervical spine related to anterior fusion. IMPRESSION: Unchanged 1.2 cm left lower lobe noncalcified, solid nodule, indeterminate. PET-CT, short-term follow-up CT scan of the chest to assess for stability should be considered as previously discussed. No additional suspicious pulmonary nodules. Enhancing liver lesions described on comparison CT abdomen are not identified on unenhanced images of the upper abdomen. Refer to the report for CT scan of the abdomen 01/29/2019 for further details and recommendations. Signed by: Dr. Magdaleno Jeff M.D. on 01/30/2019 1:30 PM
--- NOTE | 2019-01-30 22:16 | Progress Note ---
DATE: 01/30/2019 GI Progress Note. SUBJECTIVE: The patient reports significant improvement in abdominal pain. However, she is complaining of diarrhea. REVIEW OF SYSTEMS: GENERAL: No fever or chills. CVS: No chest pain or palpitation. RESPIRATORY: No cough or expectoration. MEDICATIONS: Reviewed the MAR. She is still on intravenous piperacillin/tazobactam as well as levofloxacin along with other medications. PHYSICAL EXAMINATION: VITAL SIGNS: Temperature 96.6, pulse 63, respirations 16, blood pressure 145/87, oxygen saturation 95% on room air. GENERAL: Not in any acute distress. HEENT: Oral mucosa is moist. Anicteric sclerae. ABDOMEN: Soft. Right lower quadrant tenderness has significantly improved. No rebound, rigidity, or guarding. No mass or hernia. Positive bowel sounds. LABORATORY DATA: None drawn today. MRI of the abdomen was done. It is not clear to me whether it was done with the liver protocol. Report is still pending. ASSESSMENT: 1. Ascending and transverse colon diverticulitis without any local complications. The patient has significantly improved clinically. Abdominal exam is much more benign today. 2. Opioid-induced constipation has also resolved. 3. Incidentally enhancing masses in the right lobe of the liver. MRI of the abdomen done today, report is pending. PLAN: Switch IV to oral antibiotic. The patient has been tolerating solid food. We will continue low residue diet. Follow up the MRI of the abdomen result. Continue supportive care. Once the patient is switched to oral antibiotic and tolerating oral diet, then patient can be discharged home over the weekend on another 5 to 7 days course of oral antibiotic. The patient has my business card. I will follow her in my office within 1 to 2 weeks after discharge. Nick Elise MD SA/MAYLIN /[id number]
[2019-01-31] VITALS (8 sets, daily range): BP systolic 115–163; BP diastolic 56–91
[2019-01-31] MEDS: PIPER-TAZ 3.375 GM 50 ML IV SCH ×4 (05:30→22:57)
[2019-01-31] MEDS: ONDANSETRON HCL 4 MG ORAL DISINTEGRATING TAB PO PRN (05:37)
[2019-01-31 05:47] LABS: BASOPHILS # (AUTO) 0.1 (0.0-0.1); BASOPHILS % 0.9 % (0.0-1.0); EOSINOPHILS # (AUTO) 0.1 (0.0-0.4); EOSINOPHILS % 1.9 % (0.0-6.0); HEMATOCRIT 36.2 % (34.2-44.1); HEMOGLOBIN 11.8 g/dL (12.0-16.0); LYMPHOCYTES # (AUTO) 1.6 (1.0-3.2); LYMPHOCYTES % 22.6 % (18.0-39.1); MEAN CORPUSCULAR HEMOGLOBIN 30.1 pg (28-32); MEAN CORPUSCULAR HGB CONC 32.6 g/dL (31-35); MEAN CORPUSCULAR VOLUME 92.3 fL (81-99); MONOCYTES # (AUTO) 0.5 (0.2-0.8); MONOCYTES % 6.6 % (4.4-11.3); NEUTROPHILS # (AUTO) 4.6 (2.1-6.9); NEUTROPHILS % 67.6 % (38.7-80.0); PLATELET COUNT 253 x10e3/uL (140-360); RED BLOOD COUNT 3.92 x10e6/uL (3.6-5.1); RED CELL DISTRIBUTION WIDTH 14.2 % (11.7-14.4)
[2019-01-31 06:00] LABS: ANION GAP 13.3 mmol/L (8-16); BLOOD UREA NITROGEN 5 mg/dL (7-26); BUN/CREATININE RATIO 8 (6-25); CARBON DIOXIDE 27 mmol/L (22-29); CHLORIDE 103 mmol/L (98-107); EST GLOMERULAR FILTRATION RATE > 60 ML/MIN (60-); GLUCOSE 102 mg/dL (74-118); POTASSIUM 3.3 mmol/L (3.5-5.1); SODIUM 140 mmol/L (136-145)
--- NOTE | 2019-01-31 07:00 | NUR ---
RECEIVED BEDSIDE SHIFT REPORT FROM THE TELETYPEWRITER OPERATOR RN. PT DENIES NEEDS AT THIS TIME.
[2019-01-31] MEDS ORDERED: POLYETHYLENE GLYCOL 3350 17 GM PACK PO SCH (09:00)
[2019-01-31] MEDS: METOPROLOL TARTRATE 50 MG TAB PO SCH (09:00)
[2019-01-31] MEDS: HYDROCODONE/APAP 5MG-325MG TAB PO PRN ×2 (10:35→16:49)
[2019-01-31] MEDS ORDERED: HYDROCORTISONE ACETATE 25 MG/SUPP.RECT SUPP RC PRN (11:00)
[2019-01-31] MEDS: POTASSIUM CHLORIDE 20 MEQ TAB CR PO PRN (11:02)
--- NOTE | 2019-01-31 16:23 | NUR ---
Nutrition Screen Note RD Recommendation for Physician: -Continue current diet as ordered Plan of Care: RD following, monitoring for tolerance and adequacy, diet education Nutrition reason for involvement: LOS, RN consult diet education Primary Diagnose(s): Ascending and transverse colon diverticulitis PMH: HTN Ht: 59in Wt: 178.25lb BMI: 36.0kg/m2 IBW: 98lb RD Assessment: (01/31) Chart reviewed. Labs and meds reviewed. 58yo F, who was admitted for acute diverticulitis. RN called and requested for diet education. Visited pt in the room. Diet has been advanced to GI soft diet since 01/30. Pt reports slow progression with the diet. Pt ate ~50% of lunch today. Pt still complains of mild nausea, bloating, and some abdominal discomfort. LBM 01/30. No chewing or swallowing difficulty. UBW ~162.5lb. Pt was eating well MORTGAGE OR LOAN UNDERWRITER. Will continue to monitor and follow. Current Diet: GI soft/ low residue diet Malnutrition Evaluation (01/31) The patient does not meet criteria for a specified degree of malnutrition at this time. Will re-evaluate at follow-up as appropriate. Diet Education Needs Assessment: Diet education indicated, pt is agreeable. Learner(s): pt and Barriers: none identified Cultural/Language Modifications: None. Pt and speak Mohawk. Readiness: Acceptance Method: Handouts, explanation/ discussion Topics: Low fiber diet Understanding/Compliance: Anticipated good understanding/ compliance. All questions have been answered. Nutrition Care Level: low Signed: Radha Hudson, MS, RD, LD
[2019-01-31] MEDS: LEVOFLOXACIN 500 MG TAB PO SCH (17:00)
--- NOTE | 2019-01-31 19:00 | NUR ---
BEDSIDE SHIFT REPORT GIVEN TO THE SHOTGUN SHELL ASSEMBLY MACHINE OPERATOR RN. PT DENIED FURTHER NEEDS.
--- NOTE | 2019-01-31 19:59 | NUR ---
DR. HAIR REQUESTING IF OK TO SWITCH PO. RELAYED QUESTION TO DR. JHAVERI, AND RECEIVED OK.
--- NOTE | 2019-01-31 20:29 | Diagnostic Imaging Report ---
EXAM: MR Abdomen WITHOUT and WITH Contrast INDICATION: Acute diverticulitis. ^LIVER MASS COMPARISON: CT chest 01/30/2019. CT abdomen and pelvis 01/29/2019. 01/26/2019. TECHNIQUE: Multiplanar and multisequence imaging was performed of the abdomen without and with contrast. T1-weighted, T2-weighted images, T1-weighted in and [id number], and Diffusion weighted images. Dynamic, post gadolinium T1-weighted spoiled gradient echo scans. IV Contrast: 15 mL of MultiHance gadolinium Oral Contrast: None Medications: None COMPLICATIONS: None FINDINGS: LOWER THORAX: 1.0 cm nodule in the left lower lobe is again seen.. HEPATOBILIARY: Diffuse hepatic steatosis is better seen on recent CT abdomen and pelvis 01/29/2019. Previous 1.0 cm lesion in segment 4A near the capsule and 1.2 cm lesion in segment 8 of the liver are not seen on this exam. There are no corresponding T1 or T2 signal or areas of restricted diffusion. No abnormal enhancement. This likely represents areas of focal fatty sparing and possible shunt vascularity. No biliary ductal dilation. GALLBLADDER: No radio-opaque stones or sludge. No wall thickening. SPLEEN: No splenomegaly. PANCREAS: No focal masses or ductal dilatation. ADRENALS: No adrenal nodules KIDNEYS/URETERS: Kidneys enhance symmetrically. No hydronephrosis. No cystic or solid mass lesions. No stones. GI TRACT: Transverse colon diverticulitis is better seen on recent CT. No abnormal distention, wall thickening, or evidence of bowel obstruction. LYMPH NODES: No lymphadenopathy. VESSELS: Unremarkable. PERITONEUM / RETROPERITONEUM: No free air or fluid. BONES: Unremarkable. SOFT TISSUES: Unremarkable. IMPRESSION: 1. Preliminary report by Dr. Jerry Woodward. No emergent finding. See final report from abdominal radiologist. 2. No abnormal liver lesions identified. Previous findings on CT likely represents focal fatty sparing and shunt vascularity. 3. Previous sigmoid diverticulitis is better seen on recent CT. 4. Stable 1.0 cm left lower lobe pulmonary nodule. Signed by: Dr. Teo Jeffery M.D. on 02/02/2019 8:35 AM
[2019-01-31] MEDS: PRAMIPEXOLE DIHYDROCHLORIDE 0.25 MG TAB PO SCH (20:44)
[2019-01-31] MEDS: ATORVASTATIN 20 MG TAB PO SCH (20:44)
[2019-02-01] VITALS (8 sets, daily range): BP systolic 108–176; BP diastolic 60–94
[2019-02-01] MEDS: PIPER-TAZ 3.375 GM 50 ML IV SCH ×3 (06:25→20:58)
[2019-02-01] MEDS ORDERED: SODIUM CHLORIDE 0.9% 250ML 250 ML ONE (06:27)
--- NOTE | 2019-02-01 07:00 | NUR ---
BEDSIDE SHIFT REPORT RECEIVED FROM THE SANITATION LABORER RN. PT DENIES NEEDS AT THIS TIME.
[2019-02-01] MEDS: METOPROLOL TARTRATE 50 MG TAB PO SCH (08:03)
[2019-02-01] MEDS: HYDROCODONE/APAP 5MG-325MG TAB PO PRN ×2 (09:55→16:50)
[2019-02-01] MEDS: POTASSIUM CHLORIDE 20 MEQ TAB CR PO PRN (09:58)
--- NOTE | 2019-02-01 16:35 | NUR ---
Visit made by the Spiritual Care Department Pastoral Visitor, Tomi Johnson. PV provided pastoral presence, hospitality, and supportive listening. Pastoral Visitor informed pt/family of the scope of [employer] and availability. [place] [employer] Paperback Machine Operator Spiritual Care Department O: [phone] Pager: [phone] ([phone] number calling from)
[2019-02-01] MEDS: LEVOFLOXACIN 500 MG TAB PO SCH (17:03)
--- NOTE | 2019-02-01 19:00 | NUR ---
BEDSIDE SHIFT REPORT GIVEN TO THE SPECIALIST EMPLOYEE LABOR RELATIONS RN. PT DENIED FURTHER NEEDS.
[2019-02-01] MEDS: ATORVASTATIN 20 MG TAB PO SCH (20:58)
[2019-02-01] MEDS: PRAMIPEXOLE DIHYDROCHLORIDE 0.25 MG TAB PO SCH (20:58)
[2019-02-02] VITALS (8 sets, daily range): BP systolic 137–168; BP diastolic 63–92
[2019-02-02] MEDS: PIPER-TAZ 3.375 GM 50 ML IV SCH (06:22)
--- NOTE | 2019-02-02 07:30 | NUR ---
REC'D PATIENT AAOX3, ON ROOM AIR, RIGHT IV IS CLEAN AND PATENT. NO S/S OF DISTRESS. BED IN LOWEST POSITION, SIDE RAILS UP X2, AND CALL ROMERO WITHIN REACH.
[2019-02-02] MEDS: METOPROLOL TARTRATE 50 MG TAB PO SCH (09:30)
[2019-02-02] MEDS: HYDROCODONE/APAP 5MG-325MG TAB PO PRN ×2 (09:32→16:38)
[2019-02-02] MEDS: ONDANSETRON HCL 4 MG ORAL DISINTEGRATING TAB PO PRN (09:32)
[2019-02-02] MEDS ORDERED: FLUCONAZOLE 100 MG TAB PO ONE (10:00)
[2019-02-02] MEDS ORDERED: POTASSIUM CHLORIDE 20 MEQ TAB CR PO PRN (10:00)
--- NOTE | 2019-02-02 10:26 | Progress Note ---
DATE: 02/02/2019 GI Progress Report BODY AFTER REPORT TITLE: SUBJECTIVE: The patient continues to report right lower abdominal pain; however, it has significantly improved since admission. She continues to have a diarrhea. She is still on intravenous IV antibiotics. She has received antibiotic for more than 7 days now. She is also tolerating solid food. However, she still complains of some nausea, poor appetite REVIEW OF SYSTEMS: GENERAL: No fever or chills. CVS: No chest pain or palpitation. RESPIRATORY: No cough or expectoration. MEDICATIONS: Reviewed as per OCT. She is on intravenous piperacillin/tazobactam and intravenous levofloxacin along with other medications. OBJECTIVE: VITAL SIGNS: Temperature 96.9, pulse 70, respirations 20, blood pressure 168/80, oxygen saturation 98% on room air. GENERAL: Not in any acute distress. HEENT: Oral mucosa is moist. Anicteric sclerae. ABDOMEN: Soft. Right lower quadrant tenderness has significantly improved, no rebound, rigidity, or guarding. Positive bowel sounds. LABORATORY DATA: Last lab work done on 01/31/2019 showed WBC 6.86, hemoglobin 11.8, hematocrit 36.2, platelet count 253. Sodium 140, potassium 3.3, chloride 103, bicarb 27, BUN 5, creatinine 0.60. Stool for C diff is negative. MRI of the abdomen with liver protocol done on 01/31/2019, result is pending. IMPRESSION: 1. Ascending/transverse colon diverticulitis without any local complications. The patient has already received 7 days of intravenous antibiotic. 2. Antibiotic associated diarrhea, stool C diff is negative. 3. Liver mass without any cirrhosis. MRI with liver protocol done, result pending. PLAN: Discontinue intravenous antibiotic. The patient has received adequate course of antibiotic. She does not need any antibiotic further. Continue oral diet. Supportive care. Followup MRI liver protocol result. Outpatient elective colonoscopy. Inpatient physical therapy. Reassurance. Nick Elise MD SA/MAYLIN /[id number]
--- NOTE | 2019-02-02 17:59 | NUR ---
PATIENT IS SITTING UP IN BED EATING DINNER. FAMILY AT THE BEDSIDE, NO S/S OF DISTRESS. BED IN LOWEST POSITION, SIDE RAILS UP X2, AND CALL ROMERO WITHIN REACH.
--- NOTE | 2019-02-02 19:05 | NUR ---
Bedside rounds completed with morning nurse. Pt alert and orient to name. Lying in bed HOB 75 degrees. Denies pain at this time. Family at bedside. Call [place] within reach. Bed low and locked. Will continue to monitor.
[2019-02-02] MEDS: ATORVASTATIN 20 MG TAB PO SCH (20:59)
[2019-02-02] MEDS: PRAMIPEXOLE DIHYDROCHLORIDE 0.25 MG TAB PO SCH (20:59)
[2019-02-03] MEDS: HYDROCODONE/APAP 5MG-325MG TAB PO PRN ×2 (00:30→07:54)
[2019-02-03 00:36] VITALS: BP 139/67
[2019-02-03 05:14] VITALS: BP 197/83
[2019-02-03 05:53] LABS: BASOPHILS # (AUTO) 0.1 (0.0-0.1); BASOPHILS % 0.7 % (0.0-1.0); EOSINOPHILS # (AUTO) 0.2 (0.0-0.4); EOSINOPHILS % 1.9 % (0.0-6.0); HEMATOCRIT 38.4 % (34.2-44.1); HEMOGLOBIN 12.3 g/dL (12.0-16.0); LYMPHOCYTES # (AUTO) 2.3 (1.0-3.2); LYMPHOCYTES % 25.8 % (18.0-39.1); MEAN CORPUSCULAR HEMOGLOBIN 29.9 pg (28-32); MEAN CORPUSCULAR VOLUME 93.2 fL (81-99); MONOCYTES # (AUTO) 0.5 (0.2-0.8); MONOCYTES % 5.5 % (4.4-11.3); NEUTROPHILS # (AUTO) 5.7 (2.1-6.9); NEUTROPHILS % 65.5 % (38.7-80.0); PLATELET COUNT 266 x10e3/uL (140-360); RED BLOOD COUNT 4.12 x10e6/uL (3.6-5.1); RED CELL DISTRIBUTION WIDTH 14.1 % (11.7-14.4)
[2019-02-03 06:02] LABS: ANION GAP 12.4 mmol/L (8-16); BLOOD UREA NITROGEN 9 mg/dL (7-26); BUN/CREATININE RATIO 15 (6-25); CALCIUM 9.4 mg/dL (8.4-10.2); CARBON DIOXIDE 27 mmol/L (22-29); CHLORIDE 104 mmol/L (98-107); CREATININE, SERUM 0.62 mg/dL (0.57-1.11); EST GLOMERULAR FILTRATION RATE > 60 ML/MIN (60-); GLUCOSE 95 mg/dL (74-118); POTASSIUM 3.4 mmol/L (3.5-5.1); SODIUM 140 mmol/L (136-145)
--- NOTE | 2019-02-03 07:10 | NUR ---
Bedside rounding completed and the pt. is in bed asleep and seems in no distress.
--- NOTE | 2019-02-03 07:52 | NUR ---
The pt/ complained to the PCT of a headache and was medicated for same. Will continue to monitor the pt.
[2019-02-03] MEDS: METOPROLOL TARTRATE 50 MG TAB PO SCH (07:55)
[2019-02-03 08:00] VITALS: BP 181/98
[2019-02-03 08:06] VITALS: BP 181/98
[2019-02-03] MEDS ORDERED: LOSARTAN POTASS25 MG PO (08:43)
[2019-02-03] MEDS ORDERED: LEVAQUIN500 MG PO (08:44)
[2019-02-03] MEDS ORDERED: METRONIDAZOLE250 MG PO (08:44)
[2019-02-03] MEDS: POTASSIUM CHLORIDE 20 MEQ TAB CR PO PRN (08:56)
--- NOTE | 2019-02-03 11:49 | NUR ---
DISCUSSED IN BARRIER ROUNDS, PT ON 2 ABX, MRI OF ABD AND POSSIBLE NODULES. ELEVATED BLOOD PRESSURE, NEW MEDICATION GIVEN POSSIBLE DISCHARGE TODAY OR TOMORROW.
[2019-02-03 11:56] VITALS: BP 126/79
--- NOTE | 2019-02-03 12:26 | NUR ---
The pt's bp is within normal range 126/79 and discharge orders received form both dr's. The pt. is to follow up with primary care and gastroenterology
--- NOTE | 2019-02-03 12:45 | NUR ---
The pt. was escorted to private care and placed into the care of her family for transport home. She was advised to call and make appointments with Dr. Sami Abbasi and Nick Elise.
--- NOTE | 2019-02-03 13:18 | Discharge Summary ---
Admitted with abdominal pain and vomiting. She has a history of hypertension and a history of an AVM of the brain requiring surgery. History of smoking for 30 years, few cigarettes a day. She was found to have diverticulitis and treated with Zosyn and subsequently Levaquin and Flagyl. She was seen by Dr. Story and Dr. Romero. She had vaginal yeast infection, which was treated with Diflucan. MRI of the abdomen revealed sigmoid diverticulitis, stable left lower lobe pulmonary nodule. The patient says this has been followed for years by Dr. Kandi Abbasi and she will follow up with him. MRI reveals normal liver. There was suggestion of liver lesions on CT, but this was not documented on MRI, presumably an artifact. We will continue Lipitor 20 mg, losartan 25 mg b.i.d., metoprolol 50 mg a day, Pramipexole 0.25 mg at night, Flagyl 250 mg t.i.d. for five days, and Levaquin 500 mg once a day for 5 days. MD PENNY Franco/MAYLIN /[id number]
[2019-02-03] MEDS ORDERED: LOSARTAN POTASSIUM 25 MG TAB PO SCH (16:30)
== END 2019-02-03 12:45 | disposition home or self-care (01) | DRG 392 ==
LOC: ER 10:36 → ERHOLD 15:25 → MED/SURG3 17:12
PROVIDERS: ADMIT Internal Medicine Pulmonary Disease; ATTEND Internal Medicine Pulmonary Disease
DX: K57.32 Diverticulitis of large intestine without perforation or abscess without bleeding (principal); K52.1 Toxic gastroenteritis and colitis; F17.210 Nicotine dependence, cigarettes, uncomplicated; I10 Essential (primary) hypertension; E78.5 Hyperlipidemia, unspecified; B37.3 Candidiasis of vulva and vagina; R91.1 Solitary pulmonary nodule; T36.95XA Adverse effect of unspecified systemic antibiotic, initial encounter; K59.03 Drug induced constipation; T40.2X5A Adverse effect of other opioids, initial encounter; Z98.1 Arthrodesis status
CPT/HCPCS: 36415; 70250; 71250; 74177; 74183; 80048; 80053; 82948; 83605; 83690; 84484; 85025; 87493; 93005; 96361; 96367; 96376; 97139; 99284; J0500; J1885; J1956; J2270; J2405; J2543; J3480; J7030; J7050; Q0162; Q9967

== ENCOUNTER 2021-01-25 14:10 | Inpatient (IN) | payer BC ==
[~2021-01-25] VITALS: Ht 151.1 cm; Wt 67.6 kg
[~2021-01-25 14:10] MED LIST changes: +ESTROGEN-METHY1 EACH PO; +LEVAQUIN500 MG PO; +LIPITOR20 MG PO; +LOSARTAN POTASS25 MG PO; +MECLIZINE HCL12.5 MG PO; +METOPROLOL TART50 MG PO; +METRONIDAZOLE250 MG PO
[2021-01-25] MEDS ORDERED: ONDANSETRON HCL INJ 2MG/ML 2ML 2 MG/ML VIAL IV STA (14:28)
[2021-01-25] MEDS ORDERED: SODIUM CHLORIDE 0.9% 1000ML 1,000 ML IV STA (14:28)
[2021-01-25 14:57] LABS: BASOPHILS # (AUTO) 0.1 (0.0-0.1); EOSINOPHILS # (AUTO) 0.2 (0.0-0.4); EOSINOPHILS % 2.6 % (0.0-6.0); HEMATOCRIT 41.8 % (34.2-44.1); HEMOGLOBIN 13.8 g/dL (12.0-16.0); LYMPHOCYTES # (AUTO) 2.9 (1.0-3.2); LYMPHOCYTES % 32.3 % (18.0-39.1); MEAN CORPUSCULAR HEMOGLOBIN 30.9 pg (28-32); MEAN CORPUSCULAR VOLUME 93.5 fL (81-99); MONOCYTES # (AUTO) 0.5 (0.2-0.8); MONOCYTES % 5.2 % (4.4-11.3); NEUTROPHILS # (AUTO) 5.2 (2.1-6.9); NEUTROPHILS % 58.5 % (38.7-80.0); PLATELET COUNT 126 x10e3/uL (140-360); RED BLOOD COUNT 4.47 x10e6/uL (3.6-5.1); RED CELL DISTRIBUTION WIDTH 14.1 % (11.7-14.4)
[2021-01-25 15:01] LABS: INR 0.87; PROTHROMBIN TIME 12.4 seconds (11.9-14.5)
[2021-01-25 15:02] LABS: PARTIAL THROMBOPLASTIN TIME 24.1 seconds (23.8-35.5)
[2021-01-25 15:08] LABS: ALBUMIN 4.2 g/dL (3.5-5.0); ALBUMIN/GLOBULIN RATIO 1.4 (0.8-2.0); ANION GAP 17.2 mmol/L (8-16); CALCIUM 8.9 mg/dL (8.4-10.2); CREATININE, SERUM 0.75 mg/dL (0.57-1.11); POTASSIUM 4.2 mmol/L (3.5-5.1)
[2021-01-25 15:37] LABS: CLARITY,URINE SL CLOUDY (CLEAR); COLOR,URINE YELLOW (YELLOW); KETONES,URINE 1+ (NEGATIVE); LEUKOCYTE ESTERASE ,URINE NEGATIVE (NEGATIVE); NITRITE,URINE NEGATIVE (NEGATIVE); PROTEIN,URINE DIPSTICK NEGATIVE (NEGATIVE); URINE UROBILINOGEN 0.2 mg/dL (0.2 - 1)
[2021-01-25 15:48] LABS: BACTERIA,URINE MODERATE /HPF; EPITHELIAL CELLS,URINE MODERATE /LPF; RBC,URINE 0-5 /HPF (0-5); TRANSITIONAL EPI CELLS,URINE FEW
[2021-01-25] MEDS ORDERED: SODIUM CHLORIDE 0.9% 100 ML ONE (17:32)
[2021-01-25] MEDS ORDERED: IOPAMIDOL 370 MG/ML 200 ML INFUS..BTL INJ ONE (17:32)
[2021-01-25 20:52] VITALS: BP 178/75
[2021-01-25] MEDS: MORPHINE SULFATE INJ 2 MG/ML SYR IV PRN (21:26)
[2021-01-25] MEDS: CIPROFLOXACIN 500 MG TAB PO SCH (21:26)
[2021-01-25] MEDS: SODIUM CHLORIDE 0.9% 1000ML 1,000 ML IV SCH (21:26)
[2021-01-25 22:27] VITALS: BP 178/75
[2021-01-25] MEDS: PRAMIPEXOLE DIHYDROCHLORIDE 0.25 MG TAB PO SCH (22:37)
[2021-01-25] MEDS ORDERED: ACETAMINOPHEN 325 MG TAB PO PRN (23:00)
[2021-01-26] VITALS (7 sets, daily range): BP systolic 118–169; BP diastolic 59–91
[2021-01-26] MEDS: MORPHINE SULFATE INJ 2 MG/ML SYR IV PRN ×3 (03:49→17:59)
[2021-01-26] MEDS: ONDANSETRON HCL INJ 2MG/ML 2ML 2 MG/ML VIAL IV PRN ×3 (03:49→17:59)
[2021-01-26 05:11] LABS: BASOPHILS # (AUTO) 0.1 (0.0-0.1); BASOPHILS % 0.6 % (0.0-1.0); EOSINOPHILS # (AUTO) 0.2 (0.0-0.4); EOSINOPHILS % 2.3 % (0.0-6.0); HEMATOCRIT 37.3 % (34.2-44.1); HEMOGLOBIN 12.2 g/dL (12.0-16.0); LYMPHOCYTES # (AUTO) 2.6 (1.0-3.2); LYMPHOCYTES % 32.1 % (18.0-39.1); MEAN CORPUSCULAR HEMOGLOBIN 30.8 pg (28-32); MEAN CORPUSCULAR HGB CONC 32.7 g/dL (31-35); MEAN CORPUSCULAR VOLUME 94.2 fL (81-99); MONOCYTES # (AUTO) 0.5 (0.2-0.8); MONOCYTES % 6.6 % (4.4-11.3); NEUTROPHILS # (AUTO) 4.7 (2.1-6.9); PLATELET COUNT 198 x10e3/uL (140-360); RED BLOOD COUNT 3.96 x10e6/uL (3.6-5.1)
[2021-01-26 05:30] LABS: ANION GAP 12.6 mmol/L (8-16); CALCIUM 8.2 mg/dL (8.4-10.2); CREATININE, SERUM 0.67 mg/dL (0.57-1.11); POTASSIUM 3.6 mmol/L (3.5-5.1)
[2021-01-26] MEDS: HYDRALAZINE HCL 20 MG/ML VIAL IV PRN ×2 (05:46→20:16)
[2021-01-26 07:24] LABS: CHOL/HDL RATIO 4.6 (3.0-3.6); MAGNESIUM 1.7 MG/DL (1.3-2.1); PHOSPHORUS 3.3 MG/DL (2.3-4.7)
[2021-01-26 07:47] LABS: THYROID STIMULATING HORMONE 2.333 uIU/mL (0.350-4.940)
[2021-01-26] MEDS: DOCUSATE SODIUM 100 MG CAP PO SCH ×2 (10:25→17:37)
[2021-01-26] MEDS: CIPROFLOXACIN 500 MG TAB PO SCH ×2 (10:25→17:37)
[2021-01-26] MEDS: SODIUM CHLORIDE 0.9% 1000ML 1,000 ML IV SCH ×2 (10:25→21:45)
[2021-01-26 14:20] LABS: BASOPHILS # (AUTO) 0.1 (0.0-0.1); BASOPHILS % 0.7 % (0.0-1.0); EOSINOPHILS # (AUTO) 0.1 (0.0-0.4); EOSINOPHILS % 1.8 % (0.0-6.0); HEMATOCRIT 38.8 % (34.2-44.1); HEMOGLOBIN 12.4 g/dL (12.0-16.0); LYMPHOCYTES # (AUTO) 2.3 (1.0-3.2); LYMPHOCYTES % 31.9 % (18.0-39.1); MEAN CORPUSCULAR HEMOGLOBIN 30.4 pg (28-32); MEAN CORPUSCULAR VOLUME 95.1 fL (81-99); MONOCYTES # (AUTO) 0.4 (0.2-0.8); MONOCYTES % 5.7 % (4.4-11.3); NEUTROPHILS # (AUTO) 4.4 (2.1-6.9); NEUTROPHILS % 59.5 % (38.7-80.0); PLATELET COUNT 208 x10e3/uL (140-360); RED BLOOD COUNT 4.08 x10e6/uL (3.6-5.1); RED CELL DISTRIBUTION WIDTH 14.2 % (11.7-14.4)
[2021-01-26] MEDS: LOSARTAN POTASSIUM 25 MG TAB PO SCH (17:38)
[2021-01-26 18:49] LABS: BASOPHILS # (AUTO) 0.1 (0.0-0.1); BASOPHILS % 0.7 % (0.0-1.0); EOSINOPHILS # (AUTO) 0.2 (0.0-0.4); EOSINOPHILS % 2.4 % (0.0-6.0); HEMATOCRIT 38.3 % (34.2-44.1); HEMOGLOBIN 12.4 g/dL (12.0-16.0); LYMPHOCYTES # (AUTO) 2.4 (1.0-3.2); LYMPHOCYTES % 33.2 % (18.0-39.1); MEAN CORPUSCULAR HEMOGLOBIN 30.5 pg (28-32); MEAN CORPUSCULAR HGB CONC 32.4 g/dL (31-35); MEAN CORPUSCULAR VOLUME 94.1 fL (81-99); MONOCYTES # (AUTO) 0.5 (0.2-0.8); MONOCYTES % 7.2 % (4.4-11.3); NEUTROPHILS # (AUTO) 4.1 (2.1-6.9); NEUTROPHILS % 56.2 % (38.7-80.0); PLATELET COUNT 220 x10e3/uL (140-360); RED BLOOD COUNT 4.07 x10e6/uL (3.6-5.1); RED CELL DISTRIBUTION WIDTH 14.3 % (11.7-14.4)
[2021-01-26] MEDS: PRAMIPEXOLE DIHYDROCHLORIDE 0.25 MG TAB PO SCH (20:16)
[2021-01-26] MEDS: ATORVASTATIN 20 MG TAB PO SCH (20:16)
[2021-01-27] VITALS (9 sets, daily range): BP systolic 100–169; BP diastolic 54–91
[2021-01-27] MEDS ORDERED: METRONIDAZOLE 500MG/NS 100ML 100 ML IV ONE (00:15)
[2021-01-27] MEDS ORDERED: LEVOFLOXACIN 500MG/D5W 100ML 100 ML IV SCH (00:30)
[2021-01-27 00:35] LABS: BASOPHILS % 0.6 % (0.0-1.0); EOSINOPHILS # (AUTO) 0.2 (0.0-0.4); HEMATOCRIT 36.3 % (34.2-44.1); HEMOGLOBIN 11.7 g/dL (12.0-16.0); LYMPHOCYTES # (AUTO) 2.1 (1.0-3.2); LYMPHOCYTES % 30.6 % (18.0-39.1); MEAN CORPUSCULAR HEMOGLOBIN 30.7 pg (28-32); MEAN CORPUSCULAR HGB CONC 32.2 g/dL (31-35); MEAN CORPUSCULAR VOLUME 95.3 fL (81-99); MONOCYTES # (AUTO) 0.4 (0.2-0.8); MONOCYTES % 6.4 % (4.4-11.3); NEUTROPHILS % 59.1 % (38.7-80.0); PLATELET COUNT 201 x10e3/uL (140-360); RED BLOOD COUNT 3.81 x10e6/uL (3.6-5.1); RED CELL DISTRIBUTION WIDTH 14.5 % (11.7-14.4)
[2021-01-27] MEDS: MORPHINE SULFATE INJ 2 MG/ML SYR IV PRN ×3 (00:53→12:24)
[2021-01-27] MEDS: ONDANSETRON HCL INJ 2MG/ML 2ML 2 MG/ML VIAL IV PRN ×3 (00:53→12:17)
[2021-01-27 05:33] LABS: BASOPHILS # (AUTO) 0.1 (0.0-0.1); BASOPHILS % 0.7 % (0.0-1.0); EOSINOPHILS # (AUTO) 0.1 (0.0-0.4); EOSINOPHILS % 1.9 % (0.0-6.0); HEMATOCRIT 36.1 % (34.2-44.1); HEMOGLOBIN 11.5 g/dL (12.0-16.0); LYMPHOCYTES # (AUTO) 1.5 (1.0-3.2); LYMPHOCYTES % 20.4 % (18.0-39.1); MEAN CORPUSCULAR HEMOGLOBIN 30.3 pg (28-32); MEAN CORPUSCULAR HGB CONC 31.9 g/dL (31-35); MEAN CORPUSCULAR VOLUME 95.3 fL (81-99); MONOCYTES # (AUTO) 0.5 (0.2-0.8); MONOCYTES % 6.4 % (4.4-11.3); NEUTROPHILS # (AUTO) 5.1 (2.1-6.9); NEUTROPHILS % 70.3 % (38.7-80.0); PLATELET COUNT 171 x10e3/uL (140-360); RED BLOOD COUNT 3.79 x10e6/uL (3.6-5.1); RED CELL DISTRIBUTION WIDTH 14.6 % (11.7-14.4)
[2021-01-27] MEDS: METRONIDAZOLE 500MG/NS 100ML 100 ML IV SCH ×4 (05:56→21:43)
[2021-01-27 05:59] LABS: ANION GAP 10.1 mmol/L (8-16); CALCIUM 7.9 mg/dL (8.4-10.2); CREATININE, SERUM 0.65 mg/dL (0.57-1.11); POTASSIUM 4.1 mmol/L (3.5-5.1)
[2021-01-27] MEDS: CIPROFLOXACIN 500 MG TAB PO SCH (10:15)
[2021-01-27] MEDS: DOCUSATE SODIUM 100 MG CAP PO SCH ×2 (10:15→17:00)
[2021-01-27] MEDS: LOSARTAN POTASSIUM 25 MG TAB PO SCH ×2 (10:16→17:00)
[2021-01-27] MEDS: SODIUM CHLORIDE 0.9% 1000ML 1,000 ML IV SCH ×2 (10:16→22:18)
[2021-01-27 11:51] LABS: BASOPHILS # (AUTO) 0.1 (0.0-0.1); BASOPHILS % 0.5 % (0.0-1.0); EOSINOPHILS # (AUTO) 0.2 (0.0-0.4); EOSINOPHILS % 1.6 % (0.0-6.0); HEMATOCRIT 38.7 % (34.2-44.1); HEMOGLOBIN 12.1 g/dL (12.0-16.0); LYMPHOCYTES # (AUTO) 1.8 (1.0-3.2); LYMPHOCYTES % 19.1 % (18.0-39.1); MEAN CORPUSCULAR HGB CONC 31.3 g/dL (31-35); MEAN CORPUSCULAR VOLUME 95.8 fL (81-99); MONOCYTES # (AUTO) 0.5 (0.2-0.8); MONOCYTES % 5.7 % (4.4-11.3); NEUTROPHILS # (AUTO) 6.9 (2.1-6.9); NEUTROPHILS % 72.8 % (38.7-80.0); PLATELET COUNT 212 x10e3/uL (140-360); RED BLOOD COUNT 4.04 x10e6/uL (3.6-5.1); RED CELL DISTRIBUTION WIDTH 14.6 % (11.7-14.4)
[2021-01-27] MEDS: CIPROFLOXACIN 250 MG TAB PO SCH (18:00)
[2021-01-27] MEDS: PRAMIPEXOLE DIHYDROCHLORIDE 0.25 MG TAB PO SCH (21:12)
[2021-01-27] MEDS: ATORVASTATIN 20 MG TAB PO SCH (21:12)
[2021-01-28] VITALS (9 sets, daily range): BP systolic 124–167; BP diastolic 70–92
[2021-01-28] MEDS ORDERED: LEVOFLOXACIN 500MG/D5W 100ML 100 ML IV ONE (02:00)
[2021-01-28] MEDS: METRONIDAZOLE 500MG/NS 100ML 100 ML IV SCH ×3 (05:29→22:00)
[2021-01-28 06:01] LABS: BASOPHILS % 0.4 % (0.0-1.0); EOSINOPHILS # (AUTO) 0.1 (0.0-0.4); EOSINOPHILS % 1.5 % (0.0-6.0); HEMOGLOBIN 11.7 g/dL (12.0-16.0); LYMPHOCYTES # (AUTO) 1.7 (1.0-3.2); LYMPHOCYTES % 25.5 % (18.0-39.1); MEAN CORPUSCULAR HEMOGLOBIN 30.7 pg (28-32); MEAN CORPUSCULAR HGB CONC 30.8 g/dL (31-35); MEAN CORPUSCULAR VOLUME 99.7 fL (81-99); MONOCYTES # (AUTO) 0.4 (0.2-0.8); MONOCYTES % 5.6 % (4.4-11.3); NEUTROPHILS # (AUTO) 4.6 (2.1-6.9); NEUTROPHILS % 66.7 % (38.7-80.0); PLATELET COUNT 126 x10e3/uL (140-360); RED BLOOD COUNT 3.81 x10e6/uL (3.6-5.1); RED CELL DISTRIBUTION WIDTH 14.5 % (11.7-14.4)
[2021-01-28 06:22] LABS: ANION GAP 11.9 mmol/L (8-16); CALCIUM 7.7 mg/dL (8.4-10.2); CREATININE, SERUM 0.65 mg/dL (0.57-1.11); POTASSIUM 3.9 mmol/L (3.5-5.1)
[2021-01-28] MEDS: ONDANSETRON HCL INJ 2MG/ML 2ML 2 MG/ML VIAL IV PRN (06:39)
[2021-01-28] MEDS: DOCUSATE SODIUM 100 MG CAP PO SCH ×2 (09:20→17:25)
[2021-01-28] MEDS: LOSARTAN POTASSIUM 25 MG TAB PO SCH ×2 (09:20→17:25)
[2021-01-28] MEDS: CIPROFLOXACIN 250 MG TAB PO SCH ×2 (09:20→17:25)
[2021-01-28 12:00] LABS: BASOPHILS % 0.5 % (0.0-1.0); EOSINOPHILS # (AUTO) 0.1 (0.0-0.4); EOSINOPHILS % 1.4 % (0.0-6.0); HEMOGLOBIN 12.1 g/dL (12.0-16.0); LYMPHOCYTES # (AUTO) 1.6 (1.0-3.2); LYMPHOCYTES % 27.7 % (18.0-39.1); MEAN CORPUSCULAR HEMOGLOBIN 30.3 pg (28-32); MEAN CORPUSCULAR HGB CONC 31.8 g/dL (31-35); MONOCYTES # (AUTO) 0.4 (0.2-0.8); MONOCYTES % 7.1 % (4.4-11.3); NEUTROPHILS # (AUTO) 3.7 (2.1-6.9); NEUTROPHILS % 63.1 % (38.7-80.0); PLATELET COUNT 204 x10e3/uL (140-360); RED CELL DISTRIBUTION WIDTH 14.2 % (11.7-14.4)
[2021-01-28] MEDS: SODIUM CHLORIDE 0.9% 1000ML 1,000 ML IV SCH (13:22)
[2021-01-28 18:16] LABS: BASOPHILS % 0.5 % (0.0-1.0); EOSINOPHILS # (AUTO) 0.1 (0.0-0.4); EOSINOPHILS % 2.4 % (0.0-6.0); LYMPHOCYTES # (AUTO) 1.7 (1.0-3.2); MEAN CORPUSCULAR HEMOGLOBIN 30.5 pg (28-32); MEAN CORPUSCULAR HGB CONC 32.4 g/dL (31-35); MEAN CORPUSCULAR VOLUME 93.9 fL (81-99); MONOCYTES # (AUTO) 0.4 (0.2-0.8); MONOCYTES % 6.9 % (4.4-11.3); NEUTROPHILS # (AUTO) 3.5 (2.1-6.9); NEUTROPHILS % 60.7 % (38.7-80.0); PLATELET COUNT 206 x10e3/uL (140-360); RED BLOOD COUNT 3.94 x10e6/uL (3.6-5.1); RED CELL DISTRIBUTION WIDTH 14.1 % (11.7-14.4)
[2021-01-28] MEDS: ATORVASTATIN 20 MG TAB PO SCH (21:07)
[2021-01-28] MEDS: PRAMIPEXOLE DIHYDROCHLORIDE 0.25 MG TAB PO SCH (21:07)
[2021-01-29] MEDS ORDERED: LEVOFLOXACIN 500MG/D5W 100ML 100 ML IV SCH (02:00)
[2021-01-29 04:22] VITALS: BP 141/94
[2021-01-29] MEDS: METRONIDAZOLE 500MG/NS 100ML 100 ML IV SCH (05:38)
[2021-01-29 07:51] VITALS: BP 154/79
[2021-01-29 07:59] VITALS: BP 154/79
[2021-01-29] MEDS: LOSARTAN POTASSIUM 25 MG TAB PO SCH (09:17)
[2021-01-29] MEDS: DOCUSATE SODIUM 100 MG CAP PO SCH (09:17)
[2021-01-29 11:11] VITALS: BP 139/82
[2021-01-29] MEDS ORDERED: FLAGYL500 MG PO (13:33)
[2021-01-29] MEDS ORDERED: LEVOFLOXACIN250 MG PO (13:33)
[2021-01-29] MEDS ORDERED: ACETAMINOPHEN325 M1 PO (13:33)
== END 2021-01-29 14:49 | disposition home or self-care (01) | DRG 379 ==
LOC: ER 14:27 → ERHOLD 18:16 → IMCU 21:10 → MED/SURG 01-27 15:48 → OBSVTOIN 01-27 17:59
PROVIDERS: ADMIT Internal Medicine; ATTEND Internal Medicine
DX: K57.33 Diverticulitis of large intestine without perforation or abscess with bleeding (principal); D69.6 Thrombocytopenia, unspecified; G25.81 Restless legs syndrome; I10 Essential (primary) hypertension; E78.5 Hyperlipidemia, unspecified; F17.200 Nicotine dependence, unspecified, uncomplicated; Z20.822 Contact with and (suspected) exposure to COVID-19; R51.9 Headache, unspecified
CPT/HCPCS: 36415; 74174; 80048; 80053; 80061; 81001; 83036; 83735; 84100; 84443; 85025; 85610; 85730; 87086; 99251; 99284; G0378; J0360; J1956; J2270; J2405; J7030; J7050; Q9967; U0002

== ENCOUNTER 2022-12-08 09:03 | Emergency (ER) | payer BC ==
[~2022-12-08] VITALS: Ht 152.4 cm; Wt 67.6 kg
[~2022-12-08 09:03] MED LIST changes: +ACETAMINOPHEN325 M1 PO; +FLAGYL500 MG PO; +LEVOFLOXACIN250 MG PO
[2022-12-08] MEDS ORDERED: KETOROLAC TROMETHAMINE 30 MG/ML VIAL IM STA (09:23)
[2022-12-08] MEDS ORDERED: CYCLOBENZAPRINE HCL 10 MG TAB PO ONE (10:00)
[2022-12-08] MEDS ORDERED: HYDROCODONE/APAP 5MG-325MG TAB PO ONE (11:30)
[2022-12-08] MEDS ORDERED: LABETALOL HCL 5 MG/ML 20ML VIAL IV STA (13:46)
[2022-12-08] MEDS ORDERED: Morphine 2mg Syringe 2 MG/ML SYR IV ONE (14:00)
[2022-12-08 14:14] LABS: BASOPHILS # (AUTO) 0.1 (0.0-0.1); BASOPHILS % 0.4 % (0.0-1.0); EOSINOPHILS % 0.2 % (0.0-6.0); HEMATOCRIT 44.5 % (34.2-44.1); HEMOGLOBIN 14.8 g/dL (12.0-16.0); LYMPHOCYTES # (AUTO) 1.6 (1.0-3.2); LYMPHOCYTES % 12.7 % (18.0-39.1); MEAN CORPUSCULAR HEMOGLOBIN 31.4 pg (28-32); MEAN CORPUSCULAR HGB CONC 33.3 g/dL (31-35); MEAN CORPUSCULAR VOLUME 94.5 fL (81-99); MONOCYTES # (AUTO) 0.3 (0.2-0.8); NEUTROPHILS # (AUTO) 10.3 (2.1-6.9); NEUTROPHILS % 84.1 % (38.7-80.0); PLATELET COUNT 287 x10e3/uL (140-360); RED BLOOD COUNT 4.71 x10e6/uL (3.6-5.1); RED CELL DISTRIBUTION WIDTH 13.9 % (11.7-14.4)
[2022-12-08 14:19] LABS: INR 0.91; PARTIAL THROMBOPLASTIN TIME 26.4 seconds (23.8-35.5); PROTHROMBIN TIME 12.8 seconds (11.9-14.5)
[2022-12-08 14:27] LABS: ALBUMIN 4.3 g/dL (3.5-5.0); ALBUMIN/GLOBULIN RATIO 1.7 (0.8-2.0); ANION GAP 12.9 mmol/L (8-16); CALCIUM 9.6 mg/dL (8.4-10.2); CREATININE, SERUM 0.69 mg/dL (0.57-1.11); POTASSIUM 3.9 mmol/L (3.5-5.1)
[2022-12-08] MEDS ORDERED: ULTRAM 50MG50 MG PO (15:17)
[2022-12-08] MEDS ORDERED: MEDROL4 M2 PO (15:17)
[2022-12-11] MEDS ORDERED: [UNRECOGNIZED DRUG - OTHER] PO (14:09)
[2022-12-11] MEDS ORDERED: GABAPENTIN300 MG PO (14:09)
[2022-12-11] MEDS ORDERED: VITAMIN D (14:10)
[2022-12-11] MEDS ORDERED: FISH OIL 1,0001 EAC7 (14:10)
[2022-12-13] MEDS ORDERED: HYDROCODON-ACE1 EA12 PO (11:04)
== END 2022-12-08 16:05 | disposition home or self-care (01) ==
LOC: ER 09:08
DX: M54.12 Radiculopathy, cervical region (principal); I10 Essential (primary) hypertension; E78.5 Hyperlipidemia, unspecified; M54.9 Dorsalgia, unspecified; G89.29 Other chronic pain; G25.81 Restless legs syndrome
CPT/HCPCS: 36415; 72141; 80053; 85025; 85610; 85730; 93005; 99284; J1885; J2270; J3490

== ENCOUNTER 2022-12-13 06:54 | Observation (INO) | payer BC ==
[2022-12-11 15:48] LABS: BASOPHILS % 0.3 % (0.0-1.0); EOSINOPHILS % 0.1 % (0.0-6.0); HEMATOCRIT 44.8 % (34.2-44.1); LYMPHOCYTES # (AUTO) 1.6 (1.0-3.2); LYMPHOCYTES % 11.2 % (18.0-39.1); MEAN CORPUSCULAR HEMOGLOBIN 31.4 pg (28-32); MEAN CORPUSCULAR HGB CONC 33.5 g/dL (31-35); MEAN CORPUSCULAR VOLUME 93.7 fL (81-99); MONOCYTES # (AUTO) 0.6 (0.2-0.8); NEUTROPHILS # (AUTO) 12.1 (2.1-6.9); NEUTROPHILS % 83.4 % (38.7-80.0); PLATELET COUNT 234 x10e3/uL (140-360); RED BLOOD COUNT 4.78 x10e6/uL (3.6-5.1)
[2022-12-11 15:56] LABS: INR 0.95; PROTHROMBIN TIME 13.2 seconds (11.9-14.5)
[2022-12-11 15:57] LABS: PARTIAL THROMBOPLASTIN TIME 24.6 seconds (23.8-35.5)
[2022-12-11 16:03] LABS: ANION GAP 16.2 mmol/L (8-16); CALCIUM 10.2 mg/dL (8.4-10.2); CREATININE, SERUM 0.79 mg/dL (0.57-1.11); POTASSIUM 4.2 mmol/L (3.5-5.1)
[~2022-12-13] VITALS: Ht 151.1 cm; Wt 67.1 kg
[~2022-12-13 06:54] MED LIST changes: +FISH OIL 1,0001 EAC7; +GABAPENTIN300 MG PO; +LIDOCAINE 1% W/EPINEPHRINE 20 ML VIAL ONE; +MEDROL4 M2 PO; +THROMBIN FOR SOLN 5,000 UNIT VIAL ONE; +ULTRAM 50MG50 MG PO; +VITAMIN D; +Vancomycin IV 1 GM VIAL ONE; +[UNRECOGNIZED DRUG - OTHER] PO
[2022-12-13] MEDS ORDERED: BUPIVACAINE 0.5%/EPI 30 ML SDV INJ ONE (07:00)
[2022-12-13] MEDS ORDERED: CEFAZOLIN SODIUM 2 GM ONE (08:20)
[2022-12-13] MEDS ORDERED: LACTATED RINGER'S 1,000 ML ONE (08:20)
[2022-12-13] MEDS: FENTANYL CITRATE/PF 100MCG/2 ML INJ ONE ×4 (10:58→11:14)
[2022-12-13] MEDS ORDERED: MAGNESIUM/ALUMINUM/SIMETHICONE 30 ML UDC PO PRN (11:00)
[2022-12-13] MEDS ORDERED: CEPACOL SORE THROAT LOZENGES PO PRN (11:00)
[2022-12-13] MEDS ORDERED: ACETAMINOPHEN 325 MG TAB PO PRN (11:00)
[2022-12-13] MEDS ORDERED: HYDRALAZINE HCL 10 MG TAB PO PRN (11:00)
[2022-12-13] MEDS ORDERED: PROMETHAZINE HCL (IM) 25 MG/ML VIAL IM PRN (11:00)
[2022-12-13] MEDS ORDERED: ZOLPIDEM TARTRATE 5 MG TAB PO PRN (11:00)
[2022-12-13] MEDS ORDERED: HYDROCODON-ACE1 EA12 PO (11:04)
[2022-12-13] MEDS ORDERED: KETOROLAC TROMETHAMINE 30 MG/ML VIAL ONE (11:09)
[2022-12-13] MEDS ORDERED: ACETAMINOPHEN 1000 MG/100 ML 100 ML IV ONE (11:11)
[2022-12-13] MEDS ORDERED: FAMOTIDINE 20 MG/2 ML VIAL IV ONE (11:12)
[2022-12-13] MEDS: HYDROMORPHONE 1MG/1ML INJ ONE ×3 (11:19→13:08)
[2022-12-13] MEDS ORDERED: HYDRALAZINE HCL 20 MG/ML VIAL ONE (11:39)
[2022-12-13] MEDS ORDERED: CARISOPRODOL 350 MG TAB ONE (12:01)
[2022-12-13] MEDS ORDERED: OXYCODONE/ACETAMINOPHEN 5-325 1 EACH TABLET ONE (12:01)
[2022-12-13] MEDS ORDERED: ONDANSETRON HCL INJ 2MG/ML 2ML 2 MG/ML VIAL ONE (12:03)
[2022-12-13] MEDS ORDERED: POVIDONE IODINE 0.05% 0.05 % ML PO ONE (12:03)
[2022-12-13] MEDS ORDERED: DEXAMETHASONE SOD PHOS INJ 4 MG/ML SDV ONE (12:03)
[2022-12-13] MEDS ORDERED: SUCCINYLCHOLINE CHLORIDE 20 MG/ML 10ML VIAL ONE (12:03)
[2022-12-13] MEDS ORDERED: METOPROLOL TARTRATE INJ 1 MG/ML VIAL ONE (12:03)
[2022-12-13] MEDS ORDERED: PROPOFOL IV EMULSION 10 MG/ML 20 ML VIAL ONE (12:03)
[2022-12-13] MEDS ORDERED: SEVOFLURANE INHAL SOLN 250 ML PEN BTL ONE (12:03)
[2022-12-13] MEDS ORDERED: GLYCOPYRROLATE INJ 0.2 MG/ML VIAL ONE (12:03)
[2022-12-13] MEDS ORDERED: NEOSTIGMINE 1 MG/ML 10ML VIAL ONE (12:03)
[2022-12-13] MEDS ORDERED: ROCURONIUM BROMIDE 10 MG/ML 5ML VIAL IV ONE (12:03)
[2022-12-13] MEDS ORDERED: EYE LUBRICANT OPTH OINT 3.5GM TUBE OP ONE (12:03)
[2022-12-13] MEDS ORDERED: LIDOCAINE HCL 2% LOCAL INJ 5 ML SDV VIAL INJ ONE (12:03)
[2022-12-13] MEDS ORDERED: EPHEDRINE SULFATE INJ 50 MG/ML VIAL ONE (12:03)
[2022-12-13] MEDS: OXYCODONE/ACETAMINOPHEN 5-325 1 EACH TABLET PO PRN ×2 (12:05→19:29)
[2022-12-13] MEDS: CARISOPRODOL 350 MG TAB PO PRN ×2 (12:05→19:29)
[2022-12-13] MEDS ORDERED: KETAMINE HCL INJ 50 MG/ML 10 ML VIAL ONE (12:58)
[2022-12-13] MEDS ORDERED: FENTANYL CITRATE/PF 100MCG/2 ML INJ ONE (12:58)
[2022-12-13] MEDS ORDERED: MIDAZOLAM HCL 2 MG/2 ML VIAL ONE (12:58)
[2022-12-13 13:50] VITALS: BP 161/95; PULSE 88; RESP 16; TEMP 97.7; O2SAT 93
[2022-12-13 14:01] VITALS: BP 161/95; PULSE 88; RESP 16; TEMP 97.7; O2SAT 93
[2022-12-13 14:06] VITALS: BP 161/95; PULSE 88; RESP 16; TEMP 97.7; O2SAT 93
[2022-12-13] MEDS ORDERED: SODIUM CHLORIDE 0.9% 250ML 250 ML ONE (16:00)
[2022-12-13] MEDS: DEXAMETHASONE SOD PHOS INJ 4 MG/ML SDV IV SCH ×2 (16:27→21:12)
[2022-12-13] MEDS: GABAPENTIN 300 MG CAP PO SCH ×2 (16:27→21:12)
[2022-12-13] MEDS: HYDROMORPHONE 2MG/ML 2 MG/ML ML IV PRN ×2 (16:27→21:13)
[2022-12-13 16:41] VITALS: BP 160/96; PULSE 71; RESP 20; TEMP 97.9; O2SAT 99
[2022-12-13 21:00] VITALS: BP 150/99; PULSE 75; RESP 19; TEMP 97.8; O2SAT 98
[2022-12-13] MEDS: PRAMIPEXOLE DIHYDROCHLORIDE 0.25 MG TAB PO SCH (21:12)
[2022-12-13 21:15] VITALS: BP 150/99; PULSE 95; RESP 19; TEMP 97.8; O2SAT 98
[2022-12-14 01:13] VITALS: BP 129/85; PULSE 73; RESP 18; TEMP 97.3; O2SAT 97
[2022-12-14] MEDS: HYDROMORPHONE 2MG/ML 2 MG/ML ML IV PRN ×3 (01:23→19:43)
[2022-12-14] MEDS: DEXAMETHASONE SOD PHOS INJ 4 MG/ML SDV IV SCH ×4 (03:16→20:17)
[2022-12-14] MEDS: OXYCODONE/ACETAMINOPHEN 5-325 1 EACH TABLET PO PRN ×2 (04:49→08:01)
[2022-12-14 05:29] VITALS: BP 159/92; PULSE 79; RESP 18; TEMP 97.3; O2SAT 96
[2022-12-14] MEDS: ONDANSETRON HCL INJ 2MG/ML 2ML 2 MG/ML VIAL IV PRN ×2 (07:14→09:59)
[2022-12-14] MEDS: CARISOPRODOL 350 MG TAB PO PRN (08:00)
[2022-12-14] MEDS: GABAPENTIN 300 MG CAP PO SCH ×3 (08:00→20:17)
[2022-12-14] MEDS: METOPROLOL TARTRATE 50 MG TAB PO SCH (08:00)
[2022-12-14] MEDS: ATORVASTATIN 20 MG TAB PO SCH (08:00)
[2022-12-14 08:03] VITALS: BP 198/101; PULSE 86; RESP 18; TEMP 98; O2SAT 94
[2022-12-14] MEDS: LOSARTAN POTASSIUM 25 MG TAB PO SCH (09:59)
[2022-12-14 12:24] VITALS: BP 168/107; PULSE 88; RESP 18; TEMP 97.9; O2SAT 95
[2022-12-14] MEDS: HYDRALAZINE HCL 20 MG/ML VIAL IV PRN ×2 (12:38→19:46)
[2022-12-14] MEDS: MORPHINE SULFATE 5 MG/ML VIAL IM PRN ×2 (12:49→16:32)
[2022-12-14 16:15] VITALS: BP 158/99; PULSE 89; RESP 18; TEMP 98.6; O2SAT 99
[2022-12-14] MEDS: PRAMIPEXOLE DIHYDROCHLORIDE 0.25 MG TAB PO SCH (20:17)
[2022-12-14 21:00] VITALS: BP 173/117; PULSE 88; RESP 18; TEMP 98.7; O2SAT 97
[2022-12-15] MEDS: METOCLOPRAMIDE HCL 10 MG/2ML VIAL IV SCH ×3 (01:13→12:42)
[2022-12-15 03:16] LABS: BASOPHILS % 0.1 % (0.0-1.0); HEMATOCRIT 40.7 % (34.2-44.1); HEMOGLOBIN 12.9 g/dL (12.0-16.0); LYMPHOCYTES # (AUTO) 0.6 (1.0-3.2); LYMPHOCYTES % 2.7 % (18.0-39.1); MEAN CORPUSCULAR HGB CONC 31.7 g/dL (31-35); MEAN CORPUSCULAR VOLUME 97.8 fL (81-99); MONOCYTES # (AUTO) 1.1 (0.2-0.8); MONOCYTES % 4.9 % (4.4-11.3); NEUTROPHILS # (AUTO) 21.3 (2.1-6.9); NEUTROPHILS % 91.7 % (38.7-80.0); PLATELET COUNT 250 x10e3/uL (140-360); RED BLOOD COUNT 4.16 x10e6/uL (3.6-5.1); RED CELL DISTRIBUTION WIDTH 14.8 % (11.7-14.4)
[2022-12-15] MEDS: DEXAMETHASONE SOD PHOS INJ 4 MG/ML SDV IV SCH ×2 (04:05→08:36)
[2022-12-15 05:00] VITALS: BP 101/69; PULSE 61; RESP 17; TEMP 98.3; O2SAT 97
[2022-12-15] MEDS: METOPROLOL TARTRATE 50 MG TAB PO SCH (08:39)
[2022-12-15] MEDS: ATORVASTATIN 20 MG TAB PO SCH (08:39)
[2022-12-15] MEDS: GABAPENTIN 300 MG CAP PO SCH ×2 (08:39→14:32)
[2022-12-15] MEDS: LOSARTAN POTASSIUM 25 MG TAB PO SCH (08:39)
[2022-12-15 09:00] VITALS: BP 101/69; PULSE 61; RESP 17; TEMP 98.3; O2SAT 97
[2022-12-15 09:21] VITALS: BP 103/82; PULSE 67; RESP 17; TEMP 98.3; O2SAT 98
[2022-12-15 11:46] VITALS: BP 140/76; PULSE 72; RESP 17; TEMP 98.3; O2SAT 97
[2022-12-15] MEDS: HYDROMORPHONE 2MG/ML 2 MG/ML ML IV PRN (14:36)
== END 2022-12-15 16:52 | disposition home or self-care (01) ==
LOC: OR 06:54 → PACU V 10:56 → MED/SURG 13:50
PROVIDERS: ADMIT Neurological Surgery; ATTEND Neurological Surgery
DX: M50.123 Cervical disc disorder at C6-C7 level with radiculopathy (principal); K92.0 Hematemesis; G25.81 Restless legs syndrome; E78.5 Hyperlipidemia, unspecified; R31.9 Hematuria, unspecified; G47.33 Obstructive sleep apnea (adult) (pediatric); I10 Essential (primary) hypertension; Z71.3 Dietary counseling and surveillance; F17.210 Nicotine dependence, cigarettes, uncomplicated; Z01.810 Encounter for preprocedural cardiovascular examination; Z01.812 Encounter for preprocedural laboratory examination; Z01.818 Encounter for other preprocedural examination; Z20.822 Contact with and (suspected) exposure to COVID-19; Z79.899 Other long term (current) drug therapy
CPT/HCPCS: 0223U; 20931; 22551; 22845; 36415 ×2; 71045; 71046; 72040; 76000; 80048; 85025 ×2; 85610; 85730; 86850; 86900; 88304; 88311; 93005; C1713 ×3; C9113; G0378 ×3; J0131; J0330; J0360 ×2; J0690 ×2; J1100 ×3; J1170 ×4; J1885; J2001; J2250; J2270; J2405 ×2; J2704; J2710; J2765; J3010; J3370; J7050; J7121